=== PATIENT | male | born 1990 | race Hispanic/Latino ===

== ENCOUNTER 2016-05-13 13:43 | Inpatient (IN) | payer OTHER ==
[~2016-05-13] VITALS: Ht 180.3 cm; Wt 68.3 kg
[~2016-05-13 13:43] MED LIST: OLAN10TA5 PO
[2016-05-13 14:00] VITALS: BP 115/66; PULSE 96; RESP 24; O2SAT 97
--- NOTE | 2016-05-13 15:52 | ED.REPORT ---
HPI-Psychiatric Illness Date of Service May 13, 2016 ED Provider: Keyon Joshi MD 25 year old male with a history of schizophrenia and polysubstance abuse who presents to the ER with psychosis and paranoid delusions. Upon entering the room the patient states "For the last few weeks I've been having acid rain" then points to the ceiling. He states he is here for detox from meth, but then states he has not done meth for a week, but has been taking "dabs" of cannabis oil. States "I'm getting shot with little lasers of meth". He then says he has fatigue, fevers and sweats. Pt denies thought of suicidal or homicidal ideations. Nursing Notes Stated Complaint: SWEATING/FEVER Chief Complaint: General Complaint Nursing Notes Reviewed: Yes Allergies: Coded Allergies: No Known Allergies (Verified Allergy, Unknown, 01/11/15) Scheduled Olanzapine ODT (Zyprexa Zydis) 10 Mg Tablet 10 MG PO DAILY General Time Seen by MD: 15:20 Chief Complaint Other (psychosis) Hx Obtained From: Patient Arrived By: Walk-in Risk-Psychiatric Illness Suicide Risk Stratification RF Statements: Risk factors reviewed Past Medical History Past Medical History Schizophrenia History of polysubstance abuse (meth) Past Surgical History R hernia repair Smoking History Light Tobacco Smoker Social History History of polysubstance abuse by history Drug Use: THC Other Social History: Good social support, Local resident Ambulatory Status Independent Review of Systems Unable to Obtain ROS Mental status Constitutional: Reports: Fatigue, Fever Skin: Reports Diaphoresis Psychiatric: Reports: Delusional, Hallucinations, visual, Denies: Agitation, Homicidal ideation, Suicidal ideation Physical Exam Initial Vital Signs Vital Signs (First) Date Time Temp Pulse Resp B/P Pulse Ox O2 Delivery O2 Flow Rate FiO2 05/13/16 14:00 36.6 96 24 115/66 97 Room Air Initial VS: Reviewed Head / Eyes: Atraumatic (No signs of trauma to face or scalp.), Normocephalic, PERRL ENT: Conjunctiva normal, No scleral icterus Neck: Full range of motion Respiratory: Breath sounds normal, Clear to auscultation, No respiratory distress Cardiovascular: Regular rate & rhythm, Heart sounds normal, Intact distal pulses Extremities: Vascular intact, Neuro intact Skin: Warm, Dry, No cyanosis General/Constitutional: Awake, Alert, No acute distress, Cooperative Neurologic: Speech NL, No motor deficits Psychiatric: Not suicidal, Not homicidal Calm, no apparent distress, occasionally seems to be responding to external stimuli. Seems to be exhibiting signs of psychosis- paranoid. Not agitated or aggressive. Doesn't appear intoxicated. Interpretation & Diagnostics Lab Results Interpretation Result Diagram: 05/13/16 1705 05/13/16 1705 Test 05/13/16 14:40 05/13/16 17:05 Hold Urine Received (Received) White Blood Count 15.8th/mm3 (3.8-10.1) Red Blood Count 4.83mil/mm3 (4.40-5.80) Hemoglobin 14.1g/dL (13.8-17.2) Hematocrit 40.9% (41.0-50.0) Mean Corpuscular Volume 84.7fL (81-100) Mean Corpuscular Hemoglobin 29.2pg (27.0-35.0) Mean Corpuscular Hemoglobin Concent 34.5% (32.0-37.0) Red Cell Distribution Width 12.8% (12.3-15.4) Platelet Count 196bil/L (150-400) Neutrophils (%) (Auto) 83.9% (40-74) Lymphocytes (%) (Auto) 7.9% (14-46) Monocytes (%) (Auto) 7.8% (4-12) Eosinophils (%) (Auto) 0% (0-5) Basophils (%) (Auto) 0.2% (0-3) Sodium Level 138mEq/L (134-144) Potassium Level 3.7mEq/L (3.5-5.2) Chloride Level 101mEq/L (97-108) Carbon Dioxide Level 20mmol/L (18-29) Blood Urea Nitrogen 22mg/dL (6-20) Creatinine 1.04mg/dL (0.76-1.27) Estimat Glomerular Filtration Rate 92mL/min (>59) Glucose Level 121mg/dL (60-99) Calcium Level 8.4mg/dL (8.5-10.1) Total Bilirubin 1.0mg/dL (0.0-1.2) Aspartate Amino Transf (AST/SGOT) 59U/L (0-50) Alanine Aminotransferase (ALT/SGPT) 26U/L (0-44) Alkaline Phosphatase 78U/L (25-150) Total Protein 6.3g/dL (6.4-8.4) Albumin 4.0g/dL (3.4-5.0) Thyroid Stimulating Hormone (TSH) 0.523uIU/mL (0.450-4.500) Hold Quintero Top Tube Received (Received) Lab Results Interpretation: Utox positive for THC General Lab Results Interp 1: Labs reviewed Re-Eval/Medical Decision Med Decision/Clinical Course In summary, the patient is a 25-year-old male with past medical history significant for unspecified underlying psychiatric disorder, possibly schizophrenia, who presents with disorganized thoughts, paranoid behavior, making statements that people are trying to poison him by using lasers to inject methamphetamine into his body among other vague nonsensical statements. Nursing notes were reviewed. After initial history and physical exam, I had concerns about the patient's decisional capacity and safety in the community. I feel that the patient may require psychiatric treatment or guard list of his desire to pursue this. I contacted our social service worker who interviewed the patient as well and agreed with the plan. I considered medical etiologies of the patient's symptoms including metabolic and toxicologic and none were found in our history, physical exam or lab workup. There was no indication of significant trauma on exam. No neurologic defecits to suggest PHOTOCOPIER TECHNICIAN mass. I obtained labs including CBC, CMP and UA to eval for organic disease. These tests were negative. I also obtained a serum ETOH level and UDS were notable only for positive THC. Patient presents with exacerbation of their underlying psychosis. At this point , the patient is not stable for outpatient treatment and is at extreme risk to harm self or others due to their severe disorganization. Thus a hold was placed by [facility] and we elected to admit to psychiatry for magagement of psychosis. The patient remained comfortable and hemodynamically stable throughout their ED course. He was treated with 10 mg Zydis ODT Patient admitted for further evaluation and management. Consultation #1: Consulted With: yard worker Call Returned at: 16:44 Note: Responding to visual stimuli, convinced someone is pricking him with pins and is convinced that they are gasing him with methane gas. Will contact [facility]. Consultation #2: Consulted With: Mental health Call Returned at: 18:47 Note: DM- Updated of patient. Refusing to speak with him. Probably detainment. Counseled Regarding: Diagnosis, Lab results Discharge & Departure Impression: Primary Impression: Psychosis Psychosis type: unspecified psychosis type Qualified Code: F29 - Unspecified psychosis not due to a substance or known physiological condition Additional Impressions: Paranoia Marijuana abuse Schizophrenia Schizophrenia type: other Qualified Code: F20.89 - Other schizophrenia Disposition: Home Discharge Condition All VS Reviewed: Yes Condition: Improved Referrals: Steffi Pineda MD (PCP) Scribe Attestation Portions of this note were transcribed by Francisca Villatoro. I, (Dr. Keyon Joshi ) personally performed the history, physical exam and medical decision-making; I reviewed and confirmed the accuracy of the information in the transcribed note. Signed by: Francisca Villatoro. Frank, 05/13/2016, 1630 copies to: Steffi Pineda MD, Beck O MD May 13, 2016 15:52 Francisca Villatoro May 13, 2016 16:32
[2016-05-13 17:14] LABS: BASOPHILS % (AUTO) 0.2 % (0-3); EOSINOPHILS % (AUTO) 0 % (0-5); MONOCYTES % (AUTO) 7.8 % (4-12); Mean Corpuscular Hemoglobin 29.2 pg (27.0-35.0); Mean Corpuscular Volume 84.7 fL (81-100); NEUTROPHILS % (AUTO) 83.9 % (40-74); Platelet Count 196 bil/L (150-400)
[2016-05-13 19:08] VITALS: BP 119/72; PULSE 104; RESP 14; O2SAT 98
[2016-05-13] MEDS ORDERED: OLANZapine Zydis ODT 5 mg Tablet PO SCH (19:15)
[2016-05-13 20:28] VITALS: BP 122/74; PULSE 74; RESP 14; O2SAT 98
[2016-05-13] MEDS ORDERED: Magnesium Hydroxide 10 mL Oral Concentration PO PRN (20:45)
[2016-05-13] MEDS ORDERED: Benzocaine-Menthol Lozenge 2/Pkg PO PRN (20:45)
[2016-05-13] MEDS ORDERED: Alum-Mag Hydrox-Simeth 30 mL Suspension PO PRN (20:45)
--- NOTE | 2016-05-13 21:14 | NUR ---
Admit Note Involuntary admit arrived on the unit @ 2021. Detained on a petition for initial alf. He presented to the ED with c/o losing weight and that someone is lacing his food with poison. Positive for THC. Pt expressing paranoia and not feeling safe at home. Pt seeking help. He was medicated with Zyprexa 10mg po in the ED. Pt oriented to his room. Pt unable to tolerate excessive stimulation. He was cooperative with staff direction. Unable to sign admission paperwork will attempt again in the morning. Addendum: 05/14/16 at 0532 by INDU CRAFT RN Pt has remained asleep through the night with no noted distress or awakening per protocol checks. Total sleep over 8.5 hours.
--- NOTE | 2016-05-14 05:27 | NUR ---
- Pt arrived to unit 2021. To room, changed into scrubs and went to bed. Unable to sign paperwork due to paranoia and response to the stimulation. Went to bed soon after arrival and slept as of 2099. Pt observed every 15 minutes as ordered.
[2016-05-14] MEDS: LORazepam 1 mg Tablet PO PRN (08:07)
[2016-05-14 17:03] LABS: BASOPHILS % (AUTO) 0.3 % (0-3); EOSINOPHILS % (AUTO) 0.5 % (0-5); MONOCYTES % (AUTO) 9.1 % (4-12); Mean Corpuscular Hemoglobin 29.2 pg (27.0-35.0); Mean Corpuscular Volume 85.4 fL (81-100); NEUTROPHILS % (AUTO) 78.3 % (40-74); Platelet Count 195 bil/L (150-400)
[2016-05-14 17:55] VITALS: BP 138/78; PULSE 100; RESP 16
--- NOTE | 2016-05-14 18:35 | NUR ---
Nursing Dayshift: S: "I'm anxious about what's going to happen." O: Patient relating to his anxiety today. Depression "I'm not depressed. I'm just worried about my family." Denies harmful thoughts and hallucinations including the "meth lasers that were hitting my arms last night." Verbalizes feeling much better than yesterday. Has been out of his room for meals with a good appetite. Isolative in his room otherwise. His room has a flatus smelling odor to it. CPK level back at over 2000. Patient encouraged to drink more fluids. A: Interactive on approach. Med compliant. P: CPOC. Monitor mood and behavior.
--- NOTE | 2016-05-14 19:44 | NUR ---
Counseling/Outside Cutter Hand: S: "We are mindly reborn and your body just fluctuates." O: Patient slept 9 hours last night per staff. Patient denies S/I and H/I. He denies auditory and visual hallucinations. Depression is 0/10 and anxiety is 5/10. A: Patient is cooperative, distractible, delusional, tangential, latent speech, poor insight, poor judgment. P: Follow care plan, coordinate out-patient providers, monitor behavior.
--- NOTE | 2016-05-14 20:58 | NUR ---
Observations 0900 to 2130 Pt was isolative, flat and guarded. Pt speech and eye contact was ok. Pt was in and out of his room most of the shift. Pt attended meals in D.R. and ate 100% of his meals. Pt maintained behavior throughout the shift. Pt was polite and cooperative. Pt did not attend group and unit activities. Pt is unsocial with staff and peers, only giving short answers when approached. Pt was offered a shower but he declined. Pt was observed every 15 minutes throughout the shift as ordered.
[2016-05-14] MEDS ORDERED: risperiDONE 2 mg Tablet PO SCH (21:00)
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
--- NOTE | 2016-05-15 06:12 | NUR ---
[employer] 7pm and 7am Pt Out in the milieu at start of shift, wandering around looking lost. Pt appears confused and distracted, denies A/VH although seems internally preoccupied with thought blocking evident. Pt took HS meds, went to bed at 2200 and slept until 0315 when he got up and did not go back to sleep. Requested to shower at 0600. Pt is pleasant and cooperative. NOt a management problem. Required no prns this shift. Monitored q 15 minutes for safety, location and accountability.
[2016-05-15 08:25] VITALS: BP 126/82; PULSE 138; RESP 16
[2016-05-15] MEDS: LORazepam 1 mg Tablet PO PRN (08:35)
[2016-05-15] MEDS: risperiDONE 1 mg Tablet PO PRN (08:35)
[2016-05-15 12:55] LABS: BASOPHILS % (AUTO) 0.5 % (0-3); EOSINOPHILS % (AUTO) 0.9 % (0-5); MONOCYTES % (AUTO) 9.2 % (4-12); Mean Corpuscular Hemoglobin 29.5 pg (27.0-35.0); Mean Corpuscular Volume 86.6 fL (81-100); NEUTROPHILS % (AUTO) 74.4 % (40-74); Platelet Count 183 bil/L (150-400)
--- NOTE | 2016-05-15 13:30 | PCM.PNPSY ---
Subjective Date of Service May 15, 2016 Subjective The patient reports that the risperidone worked better than the olanzapine. He stated that it is "helping with my thinking." He received an additional 1 mg this morning and requests that we switch it to 2 mg twice daily tomorrow. He denies side effects to medication. On physical examination there is no tremor, dystonia, or cogwheeling. Sleep: 5+ hours Appetite: "Up to par" Suicidal and homicidal ideation: Denies Auditory hallucinations: Endorses seeing "a shimmer" Visual hallucinations: Denies Other Psychotic Symptoms: Still some thought disorganization Anxiety: Mild Depression: 0/10 Current Medications Current Medications Acetaminophen 650 mg Q4H PRN PO Last administered on 05/14/16 08:07; Admin Dose 650 MG; Start 05/13/16 at 20:45 Lorazepam 1 mg Q4 PRN PO Last administered on 05/15/16 08:35; Admin Dose 1 MG; Start 05/13/16 at 20:45 Olanzapine 10 mg ONCE PO Last administered on 05/13/16 19:35; Admin Dose 10 MG; Start 05/13/16 at 19:15 Risperidone 1 mg Q6 PRN PO Last administered on 05/15/16 08:35; Admin Dose 1 MG ; Start 05/14/16 at 18:50 Risperidone 2 mg HS PO Last administered on 05/14/16 20:47; Admin Dose 2 MG; Start 05/14/16 at 21:00 Mental Status Exam Vital Signs Vital Signs Date Time Temp Pulse Resp B/P Pulse Ox O2 Delivery O2 Flow Rate FiO2 05/15/16 08:25 36.4 138 16 126/82 Appearance: Neat/well groomed Attitude: Pleasant, Cooperative Behavior: No unusual behavior Affect: Well Modulated/Appropriate Mood: Anxious Thought Process/Associations: Circumstantial (mild), Other (mild thought blocking or disorganization) Speech Production: Normal Speech Rate: Normal Speech Articulation: Normal Thought Content: Suspicious Danger to Self/Suicidal Ideati: None Danger to Others: None Hallucinations: Auditory (Denies), Visual (Endorses) Consciousness: Alert Orientation: Person, Place, Date, Situation Memory: Grossly Intact Estimate Intellectual Function: Average Basis for IQ estimate: Word use/vocabulary, Educational history, Employment history Attention/Concentration & Cogn: Impaired Insight: Limited Judgement: Limited Result Diagram: 05/15/16 1200 05/14/16 1642 Mental Health Plan The patient is a 25-year-old male with a history of schizophrenia, methamphetamine use disorder and cannabis use disorder. The patient reports having stopped using methamphetamine prior to last week but has used cannabis in the last week. He is currently presenting with perceptual distortions and cognitive impairment and is agreeable to taking medications to address the same. The patient previously responded to haloperidol but did not care for the side effects and so we discussed initiating risperidone and potentially switching to Invega Sustenna for a long-acting injectable. The patient reports the medication is helpful and denies any side effects. [place] Benning[place] I. 1. Schizophrenia, chronic paranoid type. 2. Methamphetamine use disorder. 3. Marijuana use disorder. 4. Hallucinogen use disorder, resolved. [place] II. Previous diagnosis of paranoid and schizotypal personality disorder. [place] III. Elevated CPK and a mildly elevated LFTs. [place] IV. Substance use, chronic mental illness and limited social supports. [place] V. Global Assessment of Functioning 30. Treatments 1. The patient is admitted to the [facility] [place] and is provided a safe and secure environment. 2. The patient will be seen by the treatment team on a daily basis to assess symptoms, side effects and response to treatment. 3. The patient is currently denying any active suicidality and is not in need of a 1:1 at this time. 4. The patient is encouraged to participate with group and milieu activity. 5. Increase risperidone to 2 mg at bedtime and consider Invega Sustenna. 6. Lorazepam 1 mg q.4 h. p.r.n. anxiety. 7. Zolpidem 5 mg nightly p.r.n. insomnia. 8. Risperidone 1 mg q.6 h. p.r.n. psychotic agitation. 9. Follow-up CPK, CBC, CMP in the morning depending on today's lab results. 10. Encourage patient to drink by mouth fluids. Reviewed case with hospitalist who advised repeating labs until CPK inconsistent downward trend and encourage oral fluids. 11. Anticipated length of stay is 10-14 days. Noel Hoff MD May 15, 2016 13:29
--- NOTE | 2016-05-15 14:41 | NUR ---
[id number]. nurs. S: I am reading and writing poems, I am trying to clear my head that's not a negative thing... O:Pt mostly in bedrm staring out window, noted to be reading and writing as stated. Pt stating that that he is writing poetry and that he is not having significant pxs with depression or anxiety. Pt did come to staff in am "I am ready for my medication" and given ativan and started risperdal at that time. Pt out to get meals and eating lot of snacks. Pt appears somewhat confused and anxious but appears to want to be appropriate. P;CNCP
--- NOTE | 2016-05-15 14:42 | NUR ---
Best Worker./ c.m. S.:"Medicine is great. 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 and MD together. Pt. had broken sleep last night but "better than before." He denied SI/HI, denied AH. He continued having VH but they were "better today". He denied depression. He said that "anxiety is more my curiosity." He liked his meds and he said that medications were helping him. He denied side effect of medications. He spent a lot of time in his room in the morning. A.: pt. is cooperative, pleasant, isolative. P.: monitor behavior, encourage pt. to participate in the unit activities, monitor meds intake; follow care plan.
--- NOTE | 2016-05-15 17:18 | NUR ---
Observations 0700 to 1900 Pt was isolative, flat and guarded. Pt speech and eye contact was pretty good. Pt was in and out of his room most of the shift. Pt attended meals in D.R. and ate 100% of his meals. Pt maintained behavior throughout the shift. Pt was polite and cooperative. Pt did not attend group and unit activities. Pt did attend community and set a daily goal "to eat and relax". Pt rated his mood 5 out of 10, with 10 being the best. Pt is unsocial with staff and peers, and just keeps to himself. Pt took a shower and attended to ADL's. Pt was observed every 15 minutes throughout the shift as ordered.
--- NOTE | 2016-05-15 17:52 | NUR ---
4 hour nursing note Pt. has been guarded but polite with staff. He stated he feels good and wants to play some video games. He has a flat affect and direct eye contact. He did not feel comfortable with marketing writer going in his room to chat with him.
[2016-05-15] MEDS: risperiDONE 2 mg Tablet PO SCH (19:59)
--- NOTE | 2016-05-15 21:59 | NUR ---
Nursing Note - 7pm to 11pm Pt visible on unit , but seclusive to self, does not interact with peers. Pt with blank stare and flat affect. He is guarded and suspicious with some thought blocking evident. Pt denies A/VH but appears internally preoccupied. Pt presented independently for HS meds and declined none.
--- NOTE | 2016-05-16 06:04 | NUR ---
Nursing notes: roll finisher/sleep Patient appears to be sleeping on safety checks during the night. Patient awake briefly to request a snack, then returned to room and appears asleep. Patient awakens early am 05:45, denies complaints on approach
[2016-05-16] MEDS: LORazepam 1 mg Tablet PO PRN ×2 (08:05→23:32)
[2016-05-16] MEDS: risperiDONE 2 mg Tablet PO SCH ×2 (08:05→20:32)
--- NOTE | 2016-05-16 10:54 | NUR ---
[id number]. nurs. S: "Do you ever feel that reality is pushing in on you and you keep shrinking? It's my first time up to swing at this, so it's not surprising I'm not that good at it yet" pt up to meals and was able to spend time with another young male peer playing video game in Rec. rm, then spent time watching same peer select own preferences and exclude pt. Pt able to state everyone had own preferences and did not express any annoyance eventually returning to own room. Pt pleasant and trying to participate appropriately in interactions. Avoids conflict, has nervous demeanor. Polite to peers that attempt to engage him, not seeking interaction.
--- NOTE | 2016-05-16 14:39 | NUR ---
Produce Sorter./ c.m. S.:"I'm doing ok, a little slight headed." O.: met with pt. and MD together. Pt. slept "perfect" last night. He denied SI/HI, denied AH/VH, denied depression, rated anxiety at 3-4/10. He talked about "racing thoughts" regarding his "job". He denied side effect from meds. He was in and out of his room playing games with another male peer. He asked for discharge home as soon as possible. A.: pt. is cooperative, quiet, pleasant and polite. He is scattered in his thoughts and confused at times. He has a flat affect and a good eye contact. P.: monitor behavior, work on Safety plan and follow up; follow care plan.
--- NOTE | 2016-05-16 19:03 | PCM.PNPSY ---
Subjective Date of Service May 16, 2016 Subjective The patient reports that slight headed" but otherwise is experiencing no side effects. He reports that the risperidone continues to help his thinking. He discussed that he is hopeful for discharge on Tuesday but he was informed that Court was not till Tuesday. He denies side effects other than those noted above. Sleep: 7+ hours ""perfect" Appetite: "Good" Suicidal and homicidal ideation: Denies Auditory hallucinations: Denies Visual hallucinations: Denies Other Psychotic Symptoms: N/A Anxiety: 3-4/10, Anxious from playing the Wii Depression: 0/10 Current Medications Current Medications Risperidone 2 mg BID PO Last administered on 05/16/16 08:05; Admin Dose 2 MG; Start 05/15/16 at 20:30 Risperidone 2 mg HS PO Last administered on 05/14/16 20:47; Admin Dose 2 MG; Start 05/14/16 at 21:00; Stop 05/15/16 at 17:30; Status DC Mental Status Exam Appearance: Neat/well groomed Attitude: Pleasant, Cooperative Behavior: No unusual behavior Affect: Well Modulated/Appropriate Mood: Anxious Thought Process/Associations: Logical/Sequential, Goal Directed Speech Production: Normal Speech Rate: Normal Speech Articulation: Normal Thought Content: Appropriate Danger to Self/Suicidal Ideati: None Danger to Others: None Hallucinations: Auditory (Denies), Visual (Denies) Consciousness: Alert Orientation: Person, Place, Date, Situation Memory: Grossly Intact Estimate Intellectual Function: Average Basis for IQ estimate: Word use/vocabulary, Educational history, Employment history Attention/Concentration & Cogn: Impaired Insight: Limited Judgement: Limited Result Diagram: 05/15/16 1200 05/15/16 1200 Mental Health Plan The patient is a 25-year-old male with a history of schizophrenia, methamphetamine use disorder and cannabis use disorder. The patient reports having stopped using methamphetamine prior to last week but has used cannabis in the last week. He is currently presenting with perceptual distortions and cognitive impairment and is agreeable to taking medications to address the same. The patient previously responded to haloperidol but did not care for the side effects and so we discussed initiating risperidone and potentially switching to Invega Sustenna for a long-acting injectable. Today, the patient reports the medication continues to be helpful and denies any side effects. He is looking forward to outpatient follow-up and is requesting discharge if the team is agreeable next week. [place] Moira I. 1. Schizophrenia, chronic paranoid type. 2. Methamphetamine use disorder. 3. Marijuana use disorder. 4. Hallucinogen use disorder, resolved. [place] II. Previous diagnosis of paranoid and schizotypal personality disorder. [place] III. Elevated CPK and a mildly elevated LFTs. [place] IV. Substance use, chronic mental illness and limited social supports. [place] V. Global Assessment of Functioning 35. Medications Risperidone 2 mg twice daily Lorazepam 1 mg every 4 hours as needed for anxiety Risperidone 1 mg every 6 hours as needed for psychotic agitation Treatments 1. The patient is admitted to the [facility] and is provided a safe and secure environment. 2. The patient will be seen by the treatment team on a daily basis to assess symptoms, side effects and response to treatment. 3. The patient is currently denying any active suicidality and is not in need of a 1:1 at this time. 4. The patient is encouraged to participate with group and milieu activity. 5. Risperidone 2 mg twice daily and consider Invega Sustenna. 6. Lorazepam 1 mg q.4 h. p.r.n. anxiety. 7. Zolpidem 5 mg nightly p.r.n. insomnia. 8. Risperidone 1 mg q.6 h. p.r.n. psychotic agitation. 9. Follow-up CPK, CBC, CMP in the morning. CPK is trending down 10. Encourage patient to drink by mouth fluids. Reviewed case with hospitalist who advised repeating labs until CPK inconsistent downward trend and encourage oral fluids. 11. Anticipated length of stay is 5-7 days. Noel Hoff MD May 16, 2016 19:03
[2016-05-16] MEDS: Zolpidem 5 mg Tablet for FEMALE or >65YO PO PRN (22:43)
--- NOTE | 2016-05-16 22:54 | NUR ---
Nursing Evening Pt out in milieu participating in evening activities. Pleasant, social and cooperative on the unit. Took scheduled medication along with Ambien 5mg po prn @ 6370 for sleep. He stated "I need to quiet my mind. I need something to help me sleep". Will monitor medication efficacy and sleep cycle through the night. Addendum: 05/17/16 at 0543 by INDU CRAFT RN Pt only able to get partial sleep. He slept from 4044-2297 for a total of 4.75 hours.
[2016-05-17] MEDS: risperiDONE 2 mg Tablet PO SCH ×2 (08:10→20:47)
[2016-05-17 09:16] LABS: BASOPHILS % (AUTO) 0.3 % (0-3); MONOCYTES % (AUTO) 6.6 % (4-12); Mean Corpuscular Hemoglobin 29.4 pg (27.0-35.0); Mean Corpuscular Volume 85.1 fL (81-100); NEUTROPHILS % (AUTO) 80.1 % (40-74); Platelet Count 223 bil/L (150-400)
[2016-05-17 09:34] VITALS: BP 129/82; PULSE 107; RESP 16
--- NOTE | 2016-05-17 13:34 | NUR ---
Obs Dayshift Pt is in his room often during free times, does participate in groups, and engages but remains minimal in responses and slightly guarded. Pt has been going into the GR to play games or Wii. Pt is forward thinking and positive. GOod ADL's and good meals
--- NOTE | 2016-05-17 13:54 | PCM.PNPSY ---
Subjective Date of Service May 17, 2016 Subjective I spent 30 minutes both reviewing his treatment plan and providing supportive and educational psychotherapy. I spent more than 50% of the time counseling the patient. I reviewed the treatment plan with the patient and discussed options available including the potential risks, benefits and side effects. Roel reports remission of auditory. He states he still struggles trying to determine the difference between his imagination and the day world. The Staff reports that he has been active and is participating well in one-to-one unit and group activities. He slept 5 hours. He denies medication side effects. Patient was able to identify his medications and what they were used to treat. He appeared to understand the need for medications by the questions he asked during our discussion. Current Medications Current Medications Risperidone 2 mg BID PO Last administered on 05/17/16t 08:10; Admin Dose 2 MG; Start 05/15/16 at 20:30 Mental Status Exam Vital Signs Vital Signs Date Time Temp Pulse Resp B/P Pulse Ox O2 Delivery O2 Flow Rate FiO2 05/17/16 09:34 36.4 107 16 129/82 Appearance: Neat/well groomed Attitude: Pleasant, Cooperative Behavior: No unusual behavior Affect: Well Modulated/Appropriate Mood: Anxious Thought Process/Associations: Logical/Sequential, Goal Directed Speech Production: Normal Speech Rate: Normal Speech Articulation: Normal Thought Content: Appropriate Danger to Self/Suicidal Ideati: None Danger to Others: None Hallucinations: Auditory (Denies), Visual (Denies) Consciousness: Alert Orientation: Person, Place, Date, Situation Memory: Grossly Intact Estimate Intellectual Function: Average Basis for IQ estimate: Word use/vocabulary, Educational history, Employment history Attention/Concentration & Cogn: Impaired Insight: Limited Judgement: Limited Result Diagram: 05/17/16 0845 05/17/16 0845 Mental Health Plan The patient is a 25-year-old male with a history of schizophrenia, methamphetamine use disorder and cannabis use disorder. The patient reports having stopped using methamphetamine prior to last week but has used cannabis in the last week. He is currently presenting with perceptual distortions and cognitive impairment and is agreeable to taking medications to address the same. The patient previously responded to haloperidol but did not care for the side effects and so we discussed initiating risperidone and potentially switching to Invega Sustenna for a long-acting injectable [place] I. 1. Schizophrenia, chronic paranoid type. 2. Methamphetamine use disorder. 3. Marijuana use disorder. 4. Hallucinogen use disorder, resolved. [place] II. Previous diagnosis of paranoid and schizotypal personality disorder. [place] III. Elevated CPK and a mildly elevated LFTs. [place] IV. Substance use, chronic mental illness and limited social supports. [place] V. Global Assessment of Functioning 35. Medications Risperidone 2 mg twice daily Lorazepam 1 mg every 4 hours as needed for anxiety Risperidone 1 mg every 6 hours as needed for psychotic agitation Treatments 1. The patient is admitted to the [facility] and is provided a safe and secure environment. 2. The patient will be seen by the treatment team on a daily basis to assess symptoms, side effects and response to treatment. 3. The patient is currently denying any active suicidality and is not in need of a 1:1 at this time. 4. The patient is encouraged to participate with group and milieu activity. 5. Risperidone 2 mg twice daily and consider Invega Sustenna. 6. Lorazepam 1 mg q.4 h. p.r.n. anxiety. 7. Zolpidem 5 mg nightly p.r.n. insomnia. 8. Risperidone 1 mg q.6 h. p.r.n. psychotic agitation. 9. Follow-up CPK, CBC, CMP in the morning. CPK is trending down 10. Encourage patient to drink by mouth fluids. Reviewed case with hospitalist who advised repeating labs until CPK inconsistent downward trend and encourage oral fluids. 11. Anticipated length of stay is 5-7 days. Jt Anthony MD May 17, 2016 13:54
--- NOTE | 2016-05-17 14:40 | NUR ---
Nursing Days patient has been calm/cooperative. Answering questions appropriately. denies hearing voices. denies SI/HI. denies feeling anxious. patient reported that "Ambien kept me up last night, but the Ativan helped me get some sleep". Denies side effects with medications. When asked about how he's feeling he stated, "I felt out of myself. feeling better now". patient stated, "I want to get back to work". patient reports that he works at [employer], a [employer]. stating the busy season is coming up. patient played Wii, shaved and took a shower today. continue to encourage interaction with other residents and staff, encourage making a plan for discharge.
--- NOTE | 2016-05-17 16:46 | NUR ---
Cell Attendant Helper./ c.m. S.:"I was having trouble closing my mind. It's like too many dreams or being but not really if you understand what I mean... I think some medications are working in opposite directions..." O.: met with pt. in a private room. He didn't sleep well last night because of "too many vivid dreams and active mind". He said that he would like to change a room because he "couldn't relax" his body in his room. "It doesn't align well so something is not right in my room. I talked to other people here and they are all relaxed in their rooms but I don't feel comfortable there." He denied SI/HI, denied AH/VH or paranoid/delusional thoughts. He talked about "body heat that comes in waves". He denied depression. He said that he was "very anxious" and he rated anxiety at 3/10 at that time. He said that he might need to get "higher medications that will work in one direction." He played Smart Sparrow with a female peer after lunch and he enjoyed it a lot. "I never played this sport before but I became very good at this now." He was in and out of his room playing and talking with selective peers and staff. A.: pt. is cooperative, quiet, pleasant, confused at times, has difficulty expressing his thoughts in a clear manner. P.: monitor behavior, monitor meds intake, follow care plan.
[2016-05-17] MEDS: LORazepam 1 mg Tablet PO PRN (20:48)
[2016-05-17] MEDS: risperiDONE 1 mg Tablet PO PRN (22:40)
--- NOTE | 2016-05-18 01:43 | NUR ---
Observations 1900 to 0700 pt affect was flat. Pt hung out in the DR for most of the night but was isolative. pt was polite with staff. Pt had a few snacks before going to bed for the night. Pt first appeared asleep at 23:15 and was observed every 15 minutes through the night as directed.
[2016-05-18] MEDS: LORazepam 1 mg Tablet PO PRN ×2 (04:41→23:52)
--- NOTE | 2016-05-18 04:55 | NUR ---
Nursing Noc Pt continues to be pleasant, cooperative and responsive upon approach. He spent the evening participating in group activities. He took his scheduled medication along with prn Ativan 1mg po to help promote sleep. He did not want Ambien because he felt it made his dreams worse. He stated "I don't want to have dreams. It seems as soon as I lay down and look at the ceiling the dreams start". Pt also offered and accepted Risperdal 1mg po prn to help with paranoia and feeling anxious being in his room. Pt stated "Will this help with my dreams? Are room changes allowed?" Pt informed new patients are arriving so there were less available rooms to change to. He was agreeable to staying in his current room. Pt put his mattress on the floor and slept from 8178-6193 for a total of 5.5 hours. Upon awakening he was standing at his window and appeared to be hypervigilant. He expressed feeling anxious. He was offered and accepted Ativan 1mg po prn @ 0445. Will assess medication through the morning.
[2016-05-18] MEDS: risperiDONE 2 mg Tablet PO SCH ×2 (09:53→20:16)
[2016-05-18 11:01] VITALS: BP 115/73; PULSE 110; RESP 17
--- NOTE | 2016-05-18 14:03 | PCM.PNPSY ---
Subjective Date of Service May 18, 2016 Subjective I spent 30 minutes both reviewing his treatment plan and providing supportive and educational psychotherapy. I spent more than 50% of the time counseling the patient. Roel reports remission of auditory hallucinations. He states he still struggles trying to determine the difference between his imagination and the day world. The Staff reports that he has been active and is participating well in one-to-one unit and group activities. He slept 5 hours. He is beginning to future plan how to take care of himself after discharge. We began to talk about some of the specifics. He denies medication side effects. Patient was able to identify his medications and what they were used to treat. He appeared to understand the need for medications by the questions he asked during our discussion. Mental Status Exam Vital Signs Vital Signs Date Time Temp Pulse Resp B/P Pulse Ox O2 Delivery O2 Flow Rate FiO2 05/18/16 11:01 36.4 110 17 115/73 Appearance: Neat/well groomed Attitude: Pleasant, Cooperative Behavior: No unusual behavior Affect: Well Modulated/Appropriate Mood: Euthymic Thought Process/Associations: Logical/Sequential, Goal Directed Speech Production: Normal Speech Rate: Normal Speech Articulation: Normal Thought Content: Appropriate Danger to Self/Suicidal Ideati: None Danger to Others: None Hallucinations: Auditory (Denies), Visual (Denies) Consciousness: Alert Orientation: Person, Place, Date, Situation Memory: Grossly Intact Estimate Intellectual Function: Average Basis for IQ estimate: Word use/vocabulary, Educational history, Employment history Attention/Concentration & Cogn: Impaired Insight: Good Judgement: Limited Result Diagram: 05/17/16 0845 05/17/16 0845 Mental Health Plan The patient is a 25-year-old male with a history of schizophrenia, methamphetamine use disorder and cannabis use disorder. The patient reports having stopped using methamphetamine prior to last week but has used cannabis in the last week. He initially presented with perceptual distortions and cognitive impairment and was agreeable to taking medications to address these issues. Roel's been tolerating current medication regimen. He appears to be slowly but steadily improving In thought organization and mood stability. [place] Meacham I. 1. Schizophrenia, chronic paranoid type. 2. Methamphetamine use disorder. 3. Marijuana use disorder. 4. Hallucinogen use disorder, resolved. [place] II. Previous diagnosis of paranoid and schizotypal personality disorder. [place] III. Elevated CPK and a mildly elevated LFTs. [place] IV. Substance use, chronic mental illness and limited social supports. [place] V. Global Assessment of Functioning 40. Medications Risperidone 2 mg twice daily Lorazepam 1 mg every 4 hours as needed for anxiety Risperidone 1 mg every 6 hours as needed for psychotic agitation Treatments Patient is being provided with a high degree of safety through the structure and active adult engagement. We will focus on developing improved coping skills and identifying stressors that may have led to current episode. We will attempt to: Integrate into therapeutic groups, milieu and individual therapy. Maintain in a closely monitored and structured unit Provide low-stimulation environment Obtain collateral data to assist in treatment planning Assess degree of lability of affect and impulse control Complete safety plan Decrease frequency of relapse and need for re-hospitalization Establish a consistent sleep pattern Medication effective in stabilization of mood and/or thought process Tolerates medication without side effects Patient will be on the following psychiatric medications: Risperidone 2 mg twice daily Education: Educate patient about recreational drug use as an etiology Address patient's legal status Patient is on a 90 day least restrictive alternative with 7 additional days involuntary treatment hold. Disposition: Home Jt Anthony MD May 18, 2016 14:02
--- NOTE | 2016-05-18 14:16 | NUR ---
Nursing Note [id number] Behavior S/O: Pt has a good appetite. Pulse is 110 & has been running high. Other vital signs are WNL.Conversation tracking clear & organized with normal rate & rhythm. Pt has made reasonable requests. Pt has been in groups & interacts well with peers. He took a nap after lunch & stated, "I'm really anxious. I had a bad dream." He requested a snack-given. A: Pt slowly improving. P: Provide supportive environment. Monitor medications & effects.
--- NOTE | 2016-05-18 16:27 | NUR ---
Obs Dayshift Pt was out a little more today than past few days. Pt is polite, engages when approached, calm, joins in games in the group room. Pt is quiet, slightly isolating still, and looking forward to going home to get back to work soon. Pt is happy about working becoming more busy. Pt is oriented, participating, and appropriate on the unit and in grps. Good ADL's, Good meals
--- NOTE | 2016-05-18 22:08 | NUR ---
nursing evening shift S)"can I have the medication for headache?" O)pt cooperative, ate meals, dressed in scrubs, took medications denies anxiety, depression, polite on approach A) cooperative, flat affect, took medications P) monitor medication effectiveness and encourage participation in treatment
[2016-05-18] MEDS: risperiDONE 1 mg Tablet PO PRN (23:51)
--- NOTE | 2016-05-18 23:53 | NUR ---
Sleep Pt awoke at 1027 stating "Can I have something for a dreamless sleep?" Pt reports dreams are still bothersome but "neutral" compared to when he first arrived. Pt received Ativan 1mg po prn and Risperdal 1mg po prn. Will monitor medication efficacy and sleep cycle through the night. Addendum: 05/19/16 at 0249 by INDU CRAFT RN Pt awoke @ 2557. He requested and received Ambien 5mg po prn for sleep. Will continue to monitor medication efficacy and sleep cycle.
--- NOTE | 2016-05-19 02:13 | NUR ---
Observations 1900 to 0700 pt affect was flat. Pt hung out in the DR for most of the night but was isolative. pt was polite with staff. Pt had a few snacks before going to bed for the night. Pt had a hard time falling asleep Pt first appeared asleep at 01:15 and was observed every 15 minutes through the night as directed.
[2016-05-19] MEDS: Zolpidem 5 mg Tablet for FEMALE or >65YO PO PRN (02:48)
[2016-05-19] MEDS: risperiDONE 2 mg Tablet PO SCH ×2 (09:55→21:13)
--- NOTE | 2016-05-19 11:47 | PCM.PNPSY ---
Subjective Date of Service May 19, 2016 Subjective I spent 30 minutes both reviewing his treatment plan and providing supportive and educational psychotherapy. I spent more than 50% of the time counseling the patient. Roel repeats remission of auditory hallucinations. He is beginning to feel a clear difference between his imagination and the day world. The Staff reports that he has been active and is participating well in one-to-one unit and group activities. He slept 6 hours. He is beginning to future plan how to take care of himself after discharge. We began to talk about some of the specifics. He denies medication side effects. Patient was able to identify his medications and what they were used to treat. He appeared to understand the need for medications by the questions he asked during our discussion. Mental Status Exam Appearance: Neat/well groomed Attitude: Pleasant, Cooperative Behavior: No unusual behavior Affect: Well Modulated/Appropriate Mood: Euthymic Thought Process/Associations: Logical/Sequential, Goal Directed Speech Production: Normal Speech Rate: Normal Speech Articulation: Normal Thought Content: Appropriate Danger to Self/Suicidal Ideati: None Danger to Others: None Consciousness: Alert Orientation: Person, Place, Date, Situation Memory: Grossly Intact Estimate Intellectual Function: Average Basis for IQ estimate: Word use/vocabulary, Educational history, Employment history Attention/Concentration & Cogn: Grossly Intact Insight: Good Judgement: Good Result Diagram: 05/17/16 0845 05/17/16 0845 Mental Health Plan The patient is a 25-year-old male with a history of schizophrenia, methamphetamine use disorder and cannabis use disorder. The patient reports having stopped using methamphetamine prior to last week but has used cannabis in the last week. He initially presented with perceptual distortions and cognitive impairment and was agreeable to taking medications to address these issues. Roel is a very articulate and caring young man. He has a history of a psychotic episode which Was well treated with neuroleptics. For unclear reasons he was off medications for an unclear amount of time And had a recurrence of psychotic symptoms. The acute stressor remains unclear. Roel's been tolerating current medication regimen. He appears to be slowly but steadily improving In thought organization and mood stability. [place] I. 1. Schizophrenia, chronic paranoid type. 2. Methamphetamine use disorder. 3. Marijuana use disorder. 4. Hallucinogen use disorder, resolved. [place] II. Previous diagnosis of paranoid and schizotypal personality disorder. [place] III. Elevated CPK and a mildly elevated LFTs. [place] IV. Substance use, chronic mental illness and limited social supports. [place] V. Global Assessment of Functioning 40. Medications Risperidone 2 mg twice daily Lorazepam 1 mg every 4 hours as needed for anxiety Risperidone 1 mg every 6 hours as needed for psychotic agitation Treatments Patient is being provided with a high degree of safety through the structure and active adult engagement. We will focus on developing improved coping skills and identifying stressors that may have led to current episode. We will attempt to: Integrate into therapeutic groups, milieu and individual therapy. Maintain in a closely monitored and structured unit Provide low-stimulation environment Obtain collateral data to assist in treatment planning Assess degree of lability of affect and impulse control Complete safety plan Decrease frequency of relapse and need for re-hospitalization Establish a consistent sleep pattern Medication effective in stabilization of mood and/or thought process Tolerates medication without side effects Patient will be on the following psychiatric medications: Risperidone 2 mg twice daily Education: Educate patient about recreational drug use as an etiology Address patient's legal status Patient is on a 90 day least restrictive alternative with 7 additional days involuntary treatment hold. Disposition: Home Jt Anthony MD May 19, 2016 11:47
[2016-05-19] MEDS: LORazepam 1 mg Tablet PO PRN ×2 (12:24→21:13)
--- NOTE | 2016-05-19 12:47 | PCM.PNPSY ---
Subjective Date of Service May 19, 2016 Subjective I spent 30 minutes both reviewing his treatment plan and providing supportive and educational psychotherapy. I spent more than 50% of the time counseling the patient. Roel repeats remission of auditory hallucinations. He is beginning to feel a clear difference between his imagination and the day world. The Staff reports that he has been active and is participating well in one-to-one unit and group activities. He slept 6 hours. He is beginning to future plan how to take care of himself after discharge. We continued our talk about some of the specifics and future planning how to get his needs met. He denies medication side effects. Patient was able to identify his medications and what they were used to treat. He appeared to understand the need for medications by the questions he asked during our discussion. Mental Status Exam Appearance: Neat/well groomed Attitude: Pleasant, Cooperative Behavior: No unusual behavior Affect: Well Modulated/Appropriate Mood: Euthymic Thought Process/Associations: Logical/Sequential, Goal Directed Speech Production: Normal Speech Rate: Normal Speech Articulation: Normal Thought Content: Appropriate Danger to Self/Suicidal Ideati: None Danger to Others: None Consciousness: Alert Orientation: Person, Place, Date, Situation Memory: Grossly Intact Estimate Intellectual Function: Average Basis for IQ estimate: Word use/vocabulary, Educational history, Employment history Attention/Concentration & Cogn: Grossly Intact Insight: Good Judgement: Good Result Diagram: 05/17/16 0845 05/17/16 0845 Mental Health Plan The patient is a 25-year-old male with a history of schizophrenia, methamphetamine use disorder and cannabis use disorder. The patient reports having stopped using methamphetamine prior to last week but has used cannabis in the last week. He initially presented with perceptual distortions and cognitive impairment and was agreeable to taking medications to address these issues. Roel is a very articulate and caring young man. He has a history of a psychotic episode which Was well treated with neuroleptics. For unclear reasons he was off medications for an unclear amount of time And had a recurrence of psychotic symptoms. The acute stressor remains unclear. Roel's been tolerating current medication regimen. He appears to be steadily improving In thought organization and mood stability and likely will be ready for discharge in the next 72 hours. [place] I. 1. Schizophrenia, chronic paranoid type. 2. Methamphetamine use disorder. 3. Marijuana use disorder. 4. Hallucinogen use disorder, resolved. [place] II. Previous diagnosis of paranoid and schizotypal personality disorder. [place] III. Elevated CPK and a mildly elevated LFTs. [place] IV. Substance use, chronic mental illness and limited social supports. [place] V. Global Assessment of Functioning 40. Medications Risperidone 2 mg twice daily Lorazepam 1 mg every 4 hours as needed for anxiety Risperidone 1 mg every 6 hours as needed for psychotic agitation Treatments Patient is being provided with a high degree of safety through the structure and active adult engagement. We will focus on developing improved coping skills and identifying stressors that may have led to current episode. We will attempt to: Integrate into therapeutic groups, milieu and individual therapy. Maintain in a closely monitored and structured unit Provide low-stimulation environment Obtain collateral data to assist in treatment planning Assess degree of lability of affect and impulse control Complete safety plan Decrease frequency of relapse and need for re-hospitalization Establish a consistent sleep pattern Medication effective in stabilization of mood and/or thought process Tolerates medication without side effects Patient will be on the following psychiatric medications: Risperidone 2 mg twice daily Education: Educate patient about recreational drug use as an etiology Address patient's legal status Patient is on a 90 day least restrictive alternative with 7 additional days involuntary treatment hold. Disposition: Home Jt Anthony MD May 19, 2016 12:47
[2016-05-19] MEDS: risperiDONE 1 mg Tablet PO PRN (17:12)
[2016-05-19 17:40] VITALS: BP 136/81; PULSE 106; RESP 16
--- NOTE | 2016-05-19 17:52 | NUR ---
Counseling/Breakfast Server: S/O: Patient slept 2 hours last night per staff. He denies S/I and H/I. He denies auditory an visual hallucinations. Depression is 0/10 and anxiety is 0/10. When asked his mood, patient stated, "Fine." A: Patient is cooperative, pleasant, eythymic. P: Follow care plan, coordinate out-patient providers.
--- NOTE | 2016-05-19 17:58 | NUR ---
[id number]. nurs. S: " I slept soundly...The Dr said I am leaving Tuesday middle of the day family can get me." O: Pt denying any pxs with hallucination ,any PI and anxiety/depression 02/16. Pt reports that he has not had any nightmares or pxs with dreams. 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 Pt states that he understands that the Dr said that he will be ready for discharge on Tuesday and that family can take him home. Pt did ask for the "the pill that helps me get through the day" at 1224 given 1mg ativan, and rested after lunch. Pt asked for medication for racing thoughts at 1712 and given 1 mg of risperdal at that time. A: Pt although reporting that he is fine ,without pxs and ready for discharge is asking for prn medication and does appear somewhat nervous, with some flatness and guarded presentation. P:CNCP
--- NOTE | 2016-05-19 21:29 | NUR ---
PRN medication Pt offered and accepted Ativan 1mg po prn for felt anxiety with his HS medications. Pt distressed prior to going to sleep. He reports being fearful of having dreams.
--- NOTE | 2016-05-20 03:45 | NUR ---
nursing, nights, 11-7 s/o- has appeared to sleep after 2244. up briefly for a drink at 0330 and easily returned to sleep. assessed q 15 minutes. a- no apparent distress. p- monitor behavior/emotional state, quality, times and amount of sleep, use and effect of medication. glenn
[2016-05-20] MEDS: risperiDONE 2 mg Tablet PO SCH ×2 (08:39→20:45)
[2016-05-20 09:38] VITALS: BP 135/85; PULSE 111; RESP 16
--- NOTE | 2016-05-20 13:51 | PCM.PNPSY ---
Subjective Date of Service May 20, 2016 Subjective I spent 30 minutes both reviewing his treatment plan and providing supportive and educational psychotherapy. I spent more than 50% of the time counseling the patient. Roel repeats remission of auditory hallucinations. He talked to me about different aspects of his life that he is looking forward to addressing so he has decreased stress. The Staff reports that he has been active and is participating well in one-to-one unit and group activities. He slept 7 hours. We continued our talk about some of the specifics and future planning how to get his needs met. He denies medication side effects. Patient was able to identify his medications and what they were used to treat. He appeared to understand the need for medications by the questions he asked during our discussion. Mental Status Exam Appearance: Neat/well groomed Attitude: Pleasant, Cooperative Behavior: No unusual behavior Affect: Well Modulated/Appropriate Mood: Euthymic Thought Process/Associations: Logical/Sequential, Goal Directed Speech Production: Normal Speech Rate: Normal Speech Articulation: Normal Thought Content: Appropriate Danger to Self/Suicidal Ideati: None Danger to Others: None Consciousness: Alert Orientation: Person, Place, Date, Situation Memory: Grossly Intact Estimate Intellectual Function: Average Basis for IQ estimate: Word use/vocabulary, Educational history, Employment history Attention/Concentration & Cogn: Grossly Intact Insight: Good Judgement: Good Result Diagram: 05/17/16 0845 05/17/16 0845 Mental Health Plan The patient is a 25-year-old male with a history of schizophrenia, methamphetamine use disorder and cannabis use disorder. The patient reports having stopped using methamphetamine prior to last week but has used cannabis in the last week. He initially presented with perceptual distortions and cognitive impairment and was agreeable to taking medications to address these issues. Roel is a very articulate and caring young man. He has a history of a psychotic episode which Was well treated with neuroleptics. For unclear reasons he was off medications for an unclear amount of time And had a recurrence of psychotic symptoms. The acute stressor remains unclear. Roel's been tolerating current medication regimen. He appears to be steadily improving In thought organization and mood stability and likely will be ready for discharge in the next 72 hours. [place] I. 1. Schizophrenia, chronic paranoid type. 2. Methamphetamine use disorder. 3. Marijuana use disorder. 4. Hallucinogen use disorder, resolved. [place] II. Previous diagnosis of paranoid and schizotypal personality disorder. [place] III. Elevated CPK and a mildly elevated LFTs. [place] IV. Substance use, chronic mental illness and limited social supports. [place] V. Global Assessment of Functioning 40. Medications Risperidone 2 mg twice daily Lorazepam 1 mg every 4 hours as needed for anxiety Risperidone 1 mg every 6 hours as needed for psychotic agitation Treatments Patient is being provided with a high degree of safety through the structure and active adult engagement. We will focus on developing improved coping skills and identifying stressors that may have led to current episode. We will attempt to: Integrate into therapeutic groups, milieu and individual therapy. Maintain in a closely monitored and structured unit Provide low-stimulation environment Obtain collateral data to assist in treatment planning Assess degree of lability of affect and impulse control Complete safety plan Decrease frequency of relapse and need for re-hospitalization Establish a consistent sleep pattern Medication effective in stabilization of mood and/or thought process Tolerates medication without side effects Patient will be on the following psychiatric medications: Risperidone 2 mg twice daily Education: Educate patient about recreational drug use as an etiology Address patient's legal status Patient is on a 90 day least restrictive alternative with 7 additional days involuntary treatment hold. Disposition: [place] Jt Anthony MD May 20, 2016 13:51
--- NOTE | 2016-05-20 17:26 | NUR ---
Counseling/Office Machine Installer: S/O: Patient slept 6.5 hours last night per staff. He denies S/I and H/I. He denies auditory an visual hallucinations. Depression is 0/10 and anxiety is 0/10. When asked his mood, patient stated, "I'm doing good." A: Patient is cooperative, pleasant, hopeful, eythymic. P: Follow care plan, coordinate out-patient providers.
--- NOTE | 2016-05-20 18:17 | NUR ---
[id number]. nurs. S/O: "It was a good day I was relaxing ..just trying to think clearly..better every day..no pxs. " O: Pt out on unit participating in some grps and patio breaks, not very communicative with peer. Pt reports that he feels that he is making good progress towards discharge and denies any pxs or concerns. Pt states he is looking forward to getting back to work and that he had phonecalls with family today and they were positive. Pt pleasant quiet mannered some nervousness in presentation trys to be appropriate, responds but briefly. P:CNCP
--- NOTE | 2016-05-20 19:50 | NUR ---
Observations 0900 to 0 Pt was guarded, minimally social, isolative at times and flat. Pt speech and eye contact was good. Pt was in and out of his room most of the shift. Pt attended meals in D.R. and ate 100% of his meals. Pt maintained behavior throughout the shift. Pt was polite and cooperative. Pt attend group and unit activities. Pt did attend community and set a daily goal "to relax". Pt is unsocial with staff and peers, and just keeps to himself. Pt was observed every 15 minutes throughout the shift as ordered.
[2016-05-20] MEDS: LORazepam 1 mg Tablet PO PRN (23:35)
--- NOTE | 2016-05-21 03:51 | NUR ---
Nursing Noc Pt noted to have good visit with parents. Noted to again attempt to leave with family at end of visit, but remained in control of behavior when stopped. Pt continues to appear distracted, but able to follow direction and maintain ADLs. Continuing to monitor mood, behavior, emotional state and sleep times with Q15 minute safety checks
[2016-05-21] MEDS: risperiDONE 2 mg Tablet PO SCH ×2 (07:51→21:00)
--- NOTE | 2016-05-21 12:43 | PCM.PNPSY ---
Subjective Date of Service May 21, 2016 Subjective I spent 30 minutes both reviewing his treatment plan and providing supportive and educational psychotherapy. I spent more than 50% of the time counseling the patient. Roel repeats remission of auditory hallucinations. He talked to me about different aspects of his life that he is looking forward to addressing so he has decreased stress. The Staff reports that he has been active and is participating well in one-to-one unit and group activities. He slept 4hours at night but also significantly throughout the day. We continued our talk about some of the specifics and future planning how to get his needs met. He denies medication side effects. Patient was able to identify his medications and what they were used to treat. He appeared to understand the need for medications by the questions he asked during our discussion. Mental Status Exam Appearance: Neat/well groomed Attitude: Pleasant, Cooperative Behavior: No unusual behavior Affect: Well Modulated/Appropriate Mood: Euthymic Thought Process/Associations: Logical/Sequential, Goal Directed Speech Production: Normal Speech Rate: Normal Speech Articulation: Normal Thought Content: Appropriate Danger to Self/Suicidal Ideati: None Danger to Others: None Consciousness: Alert Orientation: Person, Place, Date, Situation Memory: Grossly Intact Estimate Intellectual Function: Average Basis for IQ estimate: Word use/vocabulary, Educational history, Employment history Attention/Concentration & Cogn: Grossly Intact Insight: Good Judgement: Good Result Diagram: 05/17/16 0845 05/17/16 0845 Mental Health Plan The patient is a 25-year-old male with a history of schizophrenia, methamphetamine use disorder and cannabis use disorder. The patient reports having stopped using methamphetamine prior to last week but has used cannabis in the last week. He initially presented with perceptual distortions and cognitive impairment and was agreeable to taking medications to address these issues. Roel is a very articulate and caring young man. He has a history of a psychotic episode which Was well treated with neuroleptics. For unclear reasons he was off medications for an unclear amount of time And had a recurrence of psychotic symptoms. The acute stressor remains unclear. Roel's been tolerating current medication regimen. He appears to be steadily improving In thought organization and mood stability and likely will be ready for discharge in the next 72 hours. I believe Roel would benefit from treatment over the weekend and if continues to improve Would recommend a Tuesday discharge. [place] I. 1. Schizophrenia, chronic paranoid type. 2. Methamphetamine use disorder. 3. Marijuana use disorder. 4. Hallucinogen use disorder, resolved. [place] II. Previous diagnosis of paranoid and schizotypal personality disorder. [place] III. Elevated CPK and a mildly elevated LFTs. [place] IV. Substance use, chronic mental illness and limited social supports. [place] V. Global Assessment of Functioning 40. Medications Risperidone 2 mg twice daily Lorazepam 1 mg every 4 hours as needed for anxiety Risperidone 1 mg every 6 hours as needed for psychotic agitation Treatments Patient is being provided with a high degree of safety through the structure and active adult engagement. We will focus on developing improved coping skills and identifying stressors that may have led to current episode. We will attempt to: Integrate into therapeutic groups, milieu and individual therapy. Maintain in a closely monitored and structured unit Provide low-stimulation environment Obtain collateral data to assist in treatment planning Assess degree of lability of affect and impulse control Complete safety plan Decrease frequency of relapse and need for re-hospitalization Establish a consistent sleep pattern Medication effective in stabilization of mood and/or thought process Tolerates medication without side effects Patient will be on the following psychiatric medications: Risperidone 2 mg twice daily Education: Educate patient about recreational drug use as an etiology Address patient's legal status Patient is on a 90 day least restrictive alternative with 7 additional days involuntary treatment hold. Disposition: Home Jt Anthony MD May 21, 2016 12:43
--- NOTE | 2016-05-21 14:59 | NUR ---
Counseling/Alum Operator: S/O: Patient slept 4+ hours last night per staff. He denies S/I and H/I. He denies auditory an visual hallucinations. Depression is 0/10 and anxiety is 0/10. When asked his mood, patient stated, "I feel fine." A: Patient is cooperative, pleasant, hopeful, soft spoken, eythymic. P: Follow care plan, coordinate out-patient providers.
--- NOTE | 2016-05-21 17:45 | NUR ---
Nursing Dayshift: S: "I've been reading. It's a good magazine." O: Patient reading the [employer] after supper this evening. Has kept occupied today reading much of the time. Cordial on approach. Eating well at meals. Not much interaction with peers. Denies anxiety, depression, harmful thoughts, and hallucinations. A: Calm. Cooperative. P: CPOC. Monitor mood and behavior.
--- NOTE | 2016-05-21 17:47 | NUR ---
Observations 0900 to 2130 Pt was guarded, isolative at times and flat. Pt speech and eye contact was good. Pt was in and out of his room most of the shift. Pt attended meals in D.R. and ate 100% of his meals. Pt maintained behavior throughout the shift. Pt was polite and cooperative. Pt is minimally social with staff and peers, and just keeps to himself. Pt was observed reading, writing and drawing while in his room. Pt was observed every 15 minutes throughout the shift as ordered.
[2016-05-21 17:52] VITALS: BP 130/80; PULSE 76; RESP 16
[2016-05-21] MEDS: LORazepam 1 mg Tablet PO PRN (21:00)
[2016-05-22] MEDS: LORazepam 1 mg Tablet PO PRN ×2 (02:14→20:58)
[2016-05-22] MEDS: Zolpidem 5 mg Tablet for FEMALE or >65YO PO PRN ×2 (02:14→20:58)
--- NOTE | 2016-05-22 03:00 | NUR ---
nursing, nights, 11-7 s- i went to sleep and i just woke up out of the blue. i should weigh more. i don't eat right. can i have something to sleep. o- has appeared to sleep after 2245 till midnight. came to the dinning room and returned to bed. appeared asleep after 0130 to 0200. returned to the dinning room and socialized with peers. asked for and received 1 mg of ativan, 5 mg of ambien and 650 mg of tylenol 0216. returned to his room and has appeared to sleep after 0230. assessed q 15 minutes. a- interrupted sleep, generally appropriate, no apparent physical distress. p- monitor behavior/emotional state, quality, times and amount of sleep, use and effect of medication. glenn
--- NOTE | 2016-05-22 04:33 | NUR ---
Nursing Note National Business Director 7pm to 7am Pt visible on the unit, socializing at start of shift, affect and mood euthymic, thoughts organized, linear and goal oriented. Pt reports looking forward to discharge. " I am feeling alot better. I think I am ready to leave". Pt given Ativan 1mg at 2100. Monitoring ongoing.
[2016-05-22] MEDS: risperiDONE 2 mg Tablet PO SCH ×2 (08:08→20:58)
[2016-05-22 12:00] VITALS: BP 123/78; PULSE 104; RESP 12
--- NOTE | 2016-05-22 12:09 | PROG NOTE ---
[address] [address] PROGRESS NOTE PATIENT: GERA MARCANO : 1990 MR#: [id number] ADMIT: 05/13/2016 JOB ID: [id number] DATE: 05/22/2016 IDENTIFICATION: A 25-year-old, gentleman hospitalized involuntarily on this unit May 13, 2016. DIAGNOSES: 1. Unspecified psychotic disorder. 2. 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 MEDICATIONS: Risperdal 2 mg b.i.d. NARRATIVE: No acute pain or physical issues on this gentleman. The patient seen and discussed with staff. Possible discharge early next week. Improved sleep. Cooperative with care. Better intake. Still some anxiety. Two Ativan p.r.n. According to the staff, overall less pressured, less paranoid, easier to redirect. Verbalized his need for ongoing meds. He denies any intent to harm himself or others. He is appearing futuristic. Will continue management as is. Watch for sedation and EPS. Will need setting up of after discharge treatment with outpatient providers.
--- NOTE | 2016-05-22 13:54 | NUR ---
Gold Leaf Laborer./ c.m. S.:"I'm fine." O.: met with pt. and MD together. Pt. said that he was sleeping "pretty fluently", but he had to use a sleeping aid last night. He denied SI/HI, denied AH/VH, denied paranoid/delusional thoughts. He described his mood as "pretty good". He couldn't tell why he was taking meds but he said that they were helpful. He wasn't sure if he needed to take meds after discharge. He is aware of his discharge on Tuesday. He was in and out of his room during the day. A.: pt. is cooperative, pleasant, quiet, has a flat affect. P.: monitor behavior, encourage pt. to take meds, check Safety plan; follow care plan.
--- NOTE | 2016-05-22 17:21 | NUR ---
Nursing Day Shift S: "I've been drawing this deep freeze vending machine I invented." O: Patient discussing activities for the day. Has been out of his room a good part of the shift. Has been watching baseball on TV. Eating well at meals. Denies anxiety, depression, harmful thoughts, and hallucinations. A: Quiet. Courteous. Monotone. P: CPOC. Monitor mood and behavior.
--- NOTE | 2016-05-22 18:47 | NUR ---
OBSERVATIONS 0700 TO 1900 Pt was pleasant and cooperative with staff. Pt was isolative most of the shift but was social during meals and when engaged. Pt showered. Pt spent some time drawing and brainstorming ideas for inventions. Maintained Q15 safety checks as directed.
--- NOTE | 2016-05-22 22:53 | NUR ---
Nursing Notes 7pm to 11pm Pt is pleasant, calm, cooperative, eye contact good, no longer guarded or suspicious, speech is normal, rate and rhythm, denies A/VH, thoughts organized and linear, pt is future oriented, denies sx of depression and anxiety. Supportive or peers and participating in milieu activities, and is medication compliant. Pt given ambmariano for sleep and retired at approx 2200.
--- NOTE | 2016-05-23 02:37 | NUR ---
Observations 1900 to 0700 pt affect was flat. Pt hung out in the DR for most of the night but was isolative. pt was polite with staff. Pt had a hard time falling asleep Pt first appeared asleep at 22:45 and was observed every 15 minutes through the night as directed.
[2016-05-23] MEDS: LORazepam 1 mg Tablet PO PRN ×2 (03:08→18:37)
--- NOTE | 2016-05-23 04:09 | NUR ---
Nursing Note 11pm to 7am Pt with interrupted sleep this shift, " I woke up and can't go back to sleep". Pt given Ambien with HS meds, Ativan 1mg x2 and tylenol for knee pain. Pt went back to room after getting meds as there was no one in the dayroom to socialize with. Monitored pt for safety, location and accountability.
[2016-05-23] MEDS: risperiDONE 2 mg Tablet PO SCH ×2 (08:21→21:47)
[2016-05-23 08:34] VITALS: BP 129/87; PULSE 102; RESP 16
--- NOTE | 2016-05-23 09:59 | PROG NOTE ---
[address] [address] PROGRESS NOTE PATIENT: GERA MARCANO : 1990 MR#: [id number] ADMIT: 05/13/2016 JOB ID: [id number] DATE: 05/23/2016 IDENTIFICATION: A 25-year-old gentleman hospitalized involuntarily on this unit May 13, 2016. DIAGNOSES: 1. Unspecified psychotic disorder. 2. 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 MEDICATIONS: Risperdal 2 b.i.d. NARRATIVE: No acute pain or physical issues in this patient. Patient seen and discussed with staff. He had Ativan at 9 p.m. with Tylenol and then again at 4:10 in the morning. He is eager for discharge. In my session with him. Eye contact is variable, but affect is broad. Motor activity is normal. Speech is even pressured. No spontaneous delusions. No hallucinatory behavior. He appears to have limited insight into his need for being here. I encouraged him to talk to the psychiatrist on Tuesday about the discharge options. Therapist accompanying me for the rounds educated him regarding the discharge planning that had been done so far with him. We encouraged him to participate in the treatment modalities of the unit. At this point, his management stays the same.
--- NOTE | 2016-05-23 11:53 | NUR ---
Pan Reclaim Processor./ c.m. S.:"I'm inventing some things: vending machine, vacuum device... reading a few books about animal care. I'm drawing some pictures..." O.: met with pt. and MD together in pt.'s room. He didn't sleep well because he had a lot of things in his mind. He said that he "was busy inventing a few things." He denied SI/HI, denied AH/VH or paranoid/delusional thoughts. He showed MD and press writer 2 books that he was going to read and said that he would like to take them home because "they look interesting". He denied depression. He had "just a little anxiety" that he rated at 3/10. He was in and out of his room occasionally. He keeps mostly to himself. A.: pt. is cooperative, isolative, quiet, confused, looks internally preoccupied. He has a flat affect. P.: monitor behavior, check Safety plan, work on follow up; follow care plan.
--- NOTE | 2016-05-23 17:34 | NUR ---
Nursing Dayshift: S: "Good. How is your day going?" O: Patient's reciprocated reply when he is asked how his day is going. Has attended group activities. Good appetite at meals. Med compliant. Denies anxiety, depression, harmful thoughts, and hallucinations. A: Flat affect. Approachable. P: CPOC. Monitor mood and behavior.
--- NOTE | 2016-05-23 18:47 | NUR ---
Observations 0700 to 1900 Pt was guarded, isolative at times, friendly, quiet and flat. Pt appears to be preoccupied. Pt speech and eye contact was good. Pt was in and out of his room most of the shift. Pt attended meals in D.R. and ate 100% of his meals. Pt maintained behavior throughout the shift. Pt was polite and cooperative. Pt is minimally social with staff and peers, and just keeps to himself. Pt was observed reading, writing and drawing while in his room. Pt played Wii with peers and appeared to enjoy this. Pt was observed writing in journal. Pt was observed every 15 minutes throughout the shift as ordered.
[2016-05-23] MEDS: Zolpidem 5 mg Tablet for FEMALE or >65YO PO PRN (21:47)
[2016-05-24] MEDS: LORazepam 1 mg Tablet PO PRN ×2 (00:17→05:14)
--- NOTE | 2016-05-24 03:47 | NUR ---
Nursing Note Freight Engineer 7pm to 7am Pt spent shift alternating between bed area and common area carrying around a pencil and paper. When asked what he was writing he replied " I am working on my invention". Pt affect more restricted than the last few days. affect guarded, thoughts preoccupied. Pt received Ativan and Ambien with HS meds, did not fall asleep until 0100. Was in room writing furiously writing. When asked the content he was vague and evasive. Monitoring ongoing. Denies all sx of depression and anxiety and denies A/VH. Pt is medication compliant. No side effects noted or observed. Addendum: 05/24/16 at 0657 by JANEEN GRAYSON RN Pt approached assembly instructions writer at 0500 asking " Can I have something for my nerves"? Pt reported that he was having a hard time dealing with the "chaos" on the unit. The unit was very busy with several active and loud pts walking the halls at the time. Pt expressed delusional content stating I have been working on an invention. A deep freeze vending machine. I am going to add a barbecue and a washer and dryer so everyone can have a one stop shop in their home. Pt given ativan 1mg po prn and Risperidone 1mg po prn with good relief.
[2016-05-24] MEDS: risperiDONE 1 mg Tablet PO PRN (05:14)
[2016-05-24] MEDS: risperiDONE 2 mg Tablet PO SCH ×2 (08:13→20:55)
[2016-05-24 08:20] VITALS: BP 121/79; PULSE 121; RESP 16
[2016-05-24] MEDS ORDERED: Paliperidone Palmitate 234 mg/1.5 mL Inj IM ONE (11:25)
[2016-05-24] MEDS ORDERED: Paliperidone Palmitate 234 mg/1.5 mL Inj (NC) IM ONE (11:59)
--- NOTE | 2016-05-24 13:55 | NUR ---
Cable Placer./ c.m. S.: "Medications is working perfectly fine... I'm working on developing new music and working on inventions. I'm working on deep freezer vending machine and a special laundromat that will be energy saving and very officiant..." O.: met with pt. and MD together to discuss pt.'s progress. He didn't sleep well again because he "was working on new music of different type and inventions." He denied SI/HI, denied AH/VH, denied depression or anxiety. He agreed to do a monthly injection instead of pills. He completed Safety plan. Dry Box Operator called [facility] in [facility] and confirmed that pt. would be able to get his 2nd injection over there if he gets the 1st one here in the hospital. Pt. was in and out of his room during the day. A.: pt. is cooperative, pleasant, quiet, confused, paranoid and delusional, grandiose. P.: monitor behavior, monitor meds intake; follow care plan.
--- NOTE | 2016-05-24 14:09 | PCM.PNPSY ---
Subjective Date of Service May 24, 2016 Subjective The patient reports that his medications are, "working perfectly fine." When asked about his poor sleep, he reports that he finds working in the middle of the night and using the light boxes for drawing to be helpful. 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 He is also working on a number of inventions, one of which was a laundromat inspired by a relatives basement which had a washer/dryer as well as living area and entertainment area ; he would like to replicate this somewhere using 3 sets of washer/dryers. Another invention was a "deep freezer vending machine." He denied medication side effects and was agreeable to [employer]. No medical complaints. Sleep: 3.5 hours Appetite: "pretty good" Suicidal and homicidal ideation: denies Auditory hallucinations: denies Visual hallucinations: denies Other Psychotic Symptoms: limited insight, as above. Anxiety/Depression: "perfect" 0/10 Mental Status Exam Vital Signs Vital Signs Date Time Temp Pulse Resp B/P Pulse Ox O2 Delivery O2 Flow Rate FiO2 05/24/16 08:20 36.3 121 16 121/79 Appearance: Neat/well groomed Attitude: Pleasant, Cooperative Behavior: No unusual behavior Affect: Well Modulated/Appropriate Mood: Euthymic Thought Process/Associations: Logical/Sequential, Goal Directed Speech Production: Normal Speech Rate: Normal Speech Articulation: Normal Thought Content: Appropriate, Other (unrealistic thoughts as above, some thought disorganziaiton.) Danger to Self/Suicidal Ideati: None Danger to Others: None Hallucinations: Auditory (Denies), Visual (Denies) Consciousness: Alert Orientation: Person, Place, Date, Situation Memory: Grossly Intact Estimate Intellectual Function: Average Basis for IQ estimate: Word use/vocabulary, Educational history, Employment history Attention/Concentration & Cogn: Grossly Intact Insight: Limited Judgement: Limited Mental Health Plan The patient is a 25-year-old male with a history of schizophrenia, methamphetamine use disorder and cannabis use disorder. The patient reports having stopped using methamphetamine prior to last week but has used cannabis in the last week. The patient has responded well to risperidone but is still having some unrealistic or possibly grandiose plans but no glenn hallucinations. He also appears to have a mild thought disorder with mild thought disorganization. The patient was agreeable to starting [employer]. [place] I. 1. Schizophrenia, chronic paranoid type. 2. Methamphetamine use disorder. 3. Marijuana use disorder. 4. Hallucinogen use disorder, resolved. [place] II. Previous diagnosis of paranoid and schizotypal personality disorder. [place] III. Elevated CPK returning to normal. [place] IV. Substance use, chronic mental illness and limited social supports. [place] V. Global Assessment of Functioning 40. Medications Risperidone 2 mg twice daily Lorazepam 1 mg every 4 hours as needed for anxiety Risperidone 1 mg every 6 hours as needed for psychotic agitation Treatments 1. The patient is admitted to the [facility] and is provided a safe and secure environment. 2. The patient will be seen by the treatment team on a daily basis to assess symptoms, side effects and response to treatment. 3. The patient is currently denying any active suicidality and is not in need of a 1:1 at this time. 4. The patient is encouraged to participate with group and milieu activity. 5. Switch Risperidone to 4mg nightly to hopefully improve sleep 6. Invega Sustenna 234mg IM x 1 now then 156mg IM in one week. 7. Lorazepam 1 mg q.4 h. p.r.n. anxiety. 8. Zolpidem 5 mg nightly p.r.n. insomnia. 9. Risperidone 1 mg q.6 h. p.r.n. psychotic agitation. 10. CPK is trending down, LFTs WNL, no need for further labs. 11. Encourage patient to drink by mouth fluids. Given poor PO and reluctance to allow labs, will check UA. 12. Anticipated length of stay is 2-3 weeks. Noel Hoff MD May 24, 2016 14:09 Noel Hoff MD May 24, 2016 14:09 Education: Educate patient about recreational drug use as an etiology Address patient's legal status Patient is on a 90 day least restrictive alternative with 7 additional days involuntary treatment hold. Disposition: Home Noel Hoff MD May 24, 2016 14:09
--- NOTE | 2016-05-24 18:48 | NUR ---
Nursing: Day shift: S/O: Roel was out on the unit today. He showered twice. He is aware of court tomorrow and the plan that he discussed with his supervisor force adjustment. He denied depression, suicidal ideation, and anxiety. No behavioral dyscontrol. Polite toward staff. P: Assess for med effectiveness.
--- NOTE | 2016-05-24 19:39 | NUR ---
Observations 0900 to 2130 Pt was guarded, isolative at times, quiet and bright when engaged. Pt appears to be preoccupied. Pt speech and eye contact was good. Pt was in and out of his room most of the shift. Pt attended meals in D.R. and ate 100% of his meals. Pt maintained behavior throughout the shift. Pt was polite and cooperative. Pt is minimally social with staff and peers, and mostly keeps to himself. Pt was observed reading and writing throughout the day. Pt played Wii with peers and appeared to enjoy this. Pt was observed writing in journal. Pt attended community meeting, set a daily goal and rated his mood 8/10, with 10 being the best. Pt was observed every 15 minutes throughout the shift as ordered.
--- NOTE | 2016-05-25 03:45 | NUR ---
Observations 1900 to 0700 pt affect was flat. Pt hung out in the DR for most of the night but was isolative. pt was polite with staff. Pt had a hard time falling asleep Pt first appeared asleep at 23:00 and was observed every 15 minutes through the night as directed.
[2016-05-25 12:57] VITALS: BP 110/81; PULSE 110; RESP 18
--- NOTE | 2016-05-25 14:45 | NUR ---
Behavior/mood Pt. appeared to be pre-occupied. He came to nursing station asked for medications, otherwise sought little social interaction. He stated his mood was 10/10 "great" but his affect appeared to contradict his self assessed mood.
--- NOTE | 2016-05-25 15:00 | PCM.PNPSY ---
Subjective Date of Service May 25, 2016 Subjective The patient reports that his medications are working well. He reported that he had some difficulty with sleep, but ultimately, slept longer. He denies hallucinations and states, "just thinking about ideas and inventions." He denied medication side effects and was agreeable to Invega Sustenna. He believed that it had been a flu shot. Sleep: 5 hours Appetite: "not very well" Suicidal and homicidal ideation: denies Auditory hallucinations: denies Visual hallucinations: denies Other Psychotic Symptoms: limited insight, as above. Anxiety: "getting over congestion" Depression: denies Current Medications Current Medications Paliperidone Palmitate 234 mg ONCE ONCE IM Last administered on 05/24/16 15:53 ; Admin Dose 234 MG; Start 05/24/16 at 11:25; Stop 05/24/16 at 11:33; Status DC Risperidone 4 mg HS PO Last administered on 05/24/16 20:55; Admin Dose 4 MG; Start 05/24/16 at 21:00 Mental Status Exam Vital Signs Vital Signs Date Time Temp Pulse Resp B/P Pulse Ox O2 Delivery O2 Flow Rate FiO2 05/25/16 12:57 35.5 110 18 110/81 Appearance: Neat/well groomed Attitude: Pleasant, Cooperative Behavior: No unusual behavior Affect: Well Modulated/Appropriate Mood: Euthymic Thought Process/Associations: Logical/Sequential, Goal Directed Speech Production: Normal Speech Rate: Normal Speech Articulation: Normal Thought Content: Appropriate, Other ("Just thinking about ideas and inventions ") Danger to Self/Suicidal Ideati: None Danger to Others: None Hallucinations: Auditory (Denies), Visual (Denies) Consciousness: Alert Orientation: Person, Place, Date, Situation Memory: Grossly Intact Estimate Intellectual Function: Average Basis for IQ estimate: Word use/vocabulary, Educational history, Employment history Attention/Concentration & Cogn: Grossly Intact Insight: Limited Judgement: Limited Mental Health Plan The patient is a 25-year-old male with a history of schizophrenia, methamphetamine use disorder and cannabis use disorder. The patient reports having stopped using methamphetamine prior to last week but has used cannabis in the last week. The patient has responded well to risperidone but is still having some unrealistic or possibly grandiose plans but no glenn hallucinations. He also appears to have a mild thought disorder with mild thought disorganization. The patient was agreeable to starting Invega Sustenna , had his first injection, and denied side effects. Sleep longer with risperidone at bedtime. [place] I. 1. Schizophrenia, chronic paranoid type. 2. Methamphetamine use disorder. 3. Marijuana use disorder. 4. Hallucinogen use disorder, resolved. [place] II. Previous diagnosis of paranoid and schizotypal personality disorder. [place] III. Elevated CPK returning to normal. [place] IV. Substance use, chronic mental illness and limited social supports. [place] V. Global Assessment of Functioning 40. Medications Risperidone 4 mg nightly Invega Sustenna 234mg IM on 05/24/16 next dose 156mg on 05/31/16 Lorazepam 1 mg every 4 hours as needed for anxiety Risperidone 1 mg every 6 hours as needed for psychotic agitation Treatments 1. The patient is admitted to the [facility] and is provided a safe and secure environment. 2. The patient will be seen by the treatment team on a daily basis to assess symptoms, side effects and response to treatment. 3. The patient is currently denying any active suicidality and is not in need of a 1:1 at this time. 4. The patient is encouraged to participate with group and milieu activity. 5. Continue Risperidone 4mg nightly 6. Invega Sustenna 234mg IM on 05/24/16 then 156mg IM in one week. 7. Lorazepam 1 mg q.4 h. p.r.n. anxiety. 8. Zolpidem 5 mg nightly p.r.n. insomnia. 9. Risperidone 1 mg q.6 h. p.r.n. psychotic agitation. 10. CPK is trending down, LFTs WNL, no need for further labs. 11. Anticipated length of stay is 2-3 days. Noel Hoff MD May 25, 2016 15:00
--- NOTE | 2016-05-25 18:49 | NUR ---
Observations [id number] Pt was awake in the dining area upon start of shift. Pt shared that he didn't get much sleep the night prior. He is very polite and social with peers when approached. Pt asked for blank paper to work on "his project." Pt attended all meals, and presents with a large appetite eating 100%.. He attended group and Community Meeting. Pt took a shower in the morning and did laundry. He was observed every 15 minutes of shift as directed.
--- NOTE | 2016-05-25 19:47 | NUR ---
Nurses Note Evening Patient has been polite and friendly with good eye contact and remained active and social on the unit. He has remained medication compliant without adverse effects. His thoughts have been clear,organized and grandiose at times. Will encourage improved insight into illness,management of same with continued medication compliance and follow-up. Addendum: 05/25/16 at 1950 by SHAY SMITH RN Amended: Links added.
[2016-05-25] MEDS: risperiDONE 2 mg Tablet PO SCH (22:00)
--- NOTE | 2016-05-26 02:23 | NUR ---
Observations 1900 to 0700 pt affect was flat. Pt hung out in the DR for most of the night but was isolative. pt was polite with staff. Pt is sleeping better than previous nights here. Pt first appeared asleep at 22:30 and was observed every 15 minutes through the night as directed.
--- NOTE | 2016-05-26 05:31 | NUR ---
Sleep Adequate sleep through the night with no noted distress per protocol checks. Up briefly for a snack and returned to bed. Total sleep 6+ hours.
--- NOTE | 2016-05-26 12:12 | PCM.PNPSY ---
Subjective Date of Service May 26, 2016 Subjective The patient reports that his medications are working well. He reported that he was sleeping well and was taking a couple of catnaps during the day. He is a little anxious, looking forward to discharging tomorrow. He reports that he will check in with his employer after going in for his mental health intake. He denies hallucinations and states, "just thinking about ideas and inventions. " He denied medication side effects. No cogwheeling or dystonia on exam. Sleep: 6+ hours Appetite: "good" Suicidal and homicidal ideation: denies Auditory hallucinations: denies Visual hallucinations: denies Other Psychotic Symptoms: "ideas and inventions" noted above. Anxiety: denies Depression: denies Current Medications Current Medications Risperidone 4 mg HS PO Last administered on 05/25/16t 22:00; Admin Dose 4 MG; Start 05/24/16 at 21:00 Mental Status Exam Appearance: Neat/well groomed Attitude: Pleasant, Cooperative Behavior: No unusual behavior Affect: Well Modulated/Appropriate Mood: Euthymic Thought Process/Associations: Logical/Sequential, Goal Directed Speech Production: Normal Speech Rate: Normal Speech Articulation: Normal Thought Content: Appropriate, Other ("Just thinking about ideas and inventions ") Danger to Self/Suicidal Ideati: None Danger to Others: None Hallucinations: Auditory (Denies), Visual (Denies) Consciousness: Alert Orientation: Person, Place, Date, Situation Memory: Grossly Intact Estimate Intellectual Function: Average Basis for IQ estimate: Word use/vocabulary, Educational history, Employment history Attention/Concentration & Cogn: Grossly Intact Insight: Limited Judgement: Limited Mental Health Plan The patient is a 25-year-old male with a history of schizophrenia, methamphetamine use disorder and cannabis use disorder. The patient reports having stopped using methamphetamine a week prior to admission and cannabis in the week prior to admission. The patient has responded well to risperidone but is still having some unrealistic or possibly grandiose plans but no glenn hallucinations. He also appears to have a mild thought disorder with mild thought disorganization but is improved today. The [facility] had his first injection, and denies side effects. Sleep is improved. [place] I. 1. Schizophrenia, chronic paranoid type. 2. Methamphetamine use disorder. 3. Marijuana use disorder. 4. Hallucinogen use disorder, resolved. [place] II. Previous diagnosis of paranoid and schizotypal personality disorder. [place] III. Elevated CPK returning to normal. [place] IV. Substance use, chronic mental illness and limited social supports. [place] V. Global Assessment of Functioning 40. Medications Risperidone 4 mg nightly Invega Sustenna 234mg IM on 05/24/16 next dose 156mg on 05/31/16 Lorazepam 1 mg every 4 hours as needed for anxiety Risperidone 1 mg every 6 hours as needed for psychotic agitation Treatments 1. The patient is admitted to the [facility] and is provided a safe and secure environment. 2. The patient will be seen by the treatment team on a daily basis to assess symptoms, side effects and response to treatment. 3. The patient is currently denying any active suicidality and is not in need of a 1:1 at this time. 4. The patient is encouraged to participate with group and milieu activity. 5. Continue Risperidone 4mg nightly taper once stable on Sustenna 6. Invega Sustenna 234mg IM on 05/24/16 then 156mg IM in one week. 7. Lorazepam 1 mg q.4 h. p.r.n. anxiety. 8. Zolpidem 5 mg nightly p.r.n. insomnia. 9. Risperidone 1 mg q.6 h. p.r.n. psychotic agitation. 10. CPK is trending down, LFTs WNL, will check labs today. 11. Anticipated discharge in am. Noel Hoff MD May 26, 2016 12:12
[2016-05-26 12:15] VITALS: BP 135/77; PULSE 128; RESP 16
[2016-05-26 12:53] LABS: BASOPHILS % (AUTO) 0.4 % (0-3); EOSINOPHILS % (AUTO) 0.8 % (0-5); MONOCYTES % (AUTO) 6.9 % (4-12); Mean Corpuscular Hemoglobin 29.1 pg (27.0-35.0); Mean Corpuscular Volume 88.3 fL (81-100); NEUTROPHILS % (AUTO) 75.6 % (40-74); Platelet Count 231 bil/L (150-400)
--- NOTE | 2016-05-26 16:40 | NUR ---
Nursing Notes Day S: "Going to leave tomorrow then find a job soon" O: Pt cooperative, pleasant and participating in group. Pt states that his anxiety is a 3/10 and that he has no suicidal ideations. Pt is looking forward to going home tomorrow. A: Pt affect is appropriate, pt makes eye contact, interacts with other patients and staff, he was out of his room most of the day. P: Monitor for safety and response to treatment. Follow plan of care.
--- NOTE | 2016-05-26 18:58 | NUR ---
Counseling/Finished Carpet Inspector: S/O: Patient slept 6+ hours last night per staff. He denies S/I and H/I. He denies auditory an visual hallucinations. Depression is 0/10 and anxiety is 0/10. When asked his mood, patient stated, "Anxious." A: Patient is cooperative, pleasant, hopeful, soft spoken, ready to discharge. P: Follow care plan, coordinate out-patient providers.
--- NOTE | 2016-05-26 20:21 | NUR ---
Obs Dayshift Pt is polite, engaged, appropriate, calm, participating. Pt is Oriented, forward thinking and hopeful to DC at the end of this week. Good ADL's, Good meals
[2016-05-26] MEDS: risperiDONE 2 mg Tablet PO SCH (21:38)
[2016-05-26] MEDS: Zolpidem 5 mg Tablet for FEMALE or >65YO PO PRN (21:38)
[2016-05-27] MEDS: LORazepam 1 mg Tablet PO PRN ×2 (01:27→11:34)
--- NOTE | 2016-05-27 05:16 | NUR ---
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 Less perseverative on inventions this shift, no delusional statements elicited or reported. Pt reports he is glad he is gaining weight and indicated I have learned how to eat properly since being here. I have tried foods I didnt think I would like. Pt given Ambien 5mg with HS meds. Pt awake at 0100 requesting Ativan for anxiety 07/17, "Not sure why I cant go back to sleep, lots going on" , denies pain. Pt went back to bed. monitored pt. q 15 minutes for safety location and accountability.
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
--- NOTE | 2016-05-27 11:19 | PCM.DIMED ---
Discharge Instructions Date of Service May 27, 2016 Dates of Hospitalization May 13, 2016 at 19:34 Discharge Diagnosis Discharge Diagnosis [place] I. 1. Schizophrenia, chronic paranoid type. 2. Methamphetamine use disorder. 3. Marijuana use disorder. 4. Hallucinogen use disorder, resolved. [place] II. Previous diagnosis of paranoid and schizotypal personality disorder. [place] III. Elevated CPK returned to normal. [place] IV. Substance use, chronic mental illness and limited social supports. [place] V. Global Assessment of Functioning 50. Test Results Laboratory Tests 72 Hours Test 05/26/16 12:45 White Blood Count 7.4th/mm3 (3.8-10.1) Red Blood Count 5.12mil/mm3 (4.40-5.80) Hemoglobin 14.9g/dL (13.8-17.2) Hematocrit 45.2% (41.0-50.0) Mean Corpuscular Volume 88.3fL (81-100) Mean Corpuscular Hemoglobin 29.1pg (27.0-35.0) Mean Corpuscular Hemoglobin Concent 33.0% (32.0-37.0) Red Cell Distribution Width 13.0% (12.3-15.4) Platelet Count 231bil/L (150-400) Neutrophils (%) (Auto) 75.6% (40-74) Lymphocytes (%) (Auto) 15.9% (14-46) Monocytes (%) (Auto) 6.9% (4-12) Eosinophils (%) (Auto) 0.8% (0-5) Basophils (%) (Auto) 0.4% (0-3) Sodium Level 140mEq/L (134-144) Potassium Level 4.5mEq/L (3.5-5.2) Chloride Level 100mEq/L (97-108) Carbon Dioxide Level 27mmol/L (18-29) Blood Urea Nitrogen 17mg/dL (6-20) Creatinine 1.04mg/dL (0.76-1.27) Estimat Glomerular Filtration Rate 92mL/min (>59) Glucose Level 127mg/dL (60-99) Calcium Level 9.0mg/dL (8.5-10.1) Total Bilirubin 0.2mg/dL (0.0-1.2) Aspartate Amino Transf (AST/SGOT) 17U/L (0-50) Alanine Aminotransferase (ALT/SGPT) 16U/L (0-44) Alkaline Phosphatase 96U/L (25-150) Total Creatine Kinase 164U/L (21-232) Total Protein 6.3g/dL (6.4-8.4) Albumin 3.9g/dL (3.4-5.0) Diet No restrictions Activity No restrictions Patient Instructions Should you have any thoughts of harming yourself or others, please call the crisis line, your provider, 911, or go to the nearest Emergency Department. Do not change or discontinue your medications without discussing with your provider. You have been given a prescription for 30 days supply of your medication. You are due for your next Invega Sustenna injection on 05/31/16. Follow-up plan Intake appointment: [facility] Newton on 05/27/16 @12:30 [facility] [address] [place] [address] Provider appointment: Rochelle Wolfe/Ivonne MOBLEY on 05/31/16 @10:00 [facility] [address] [place] [address] Noel Hoff MD May 27, 2016 11:19
[2016-05-27] MEDS ORDERED: ZLP5T PO (11:27)
[2016-05-27] MEDS ORDERED: RISP2TAB21 PO (11:27)
[2016-05-27] MEDS ORDERED: LORA-303 PO (11:27)
[2016-05-27] MEDS ORDERED: PALI156D IM (11:27)
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
--- NOTE | 2016-05-27 12:04 | NUR ---
discharge note 12pm Pt dc'd with cab leaving for 12:30 appointment, verbalized understanding of medications and appointments, medications faxed to preferred pharmacy, states pain in jaw unchanged and no redness noted
--- NOTE | 2016-05-27 12:40 | NUR ---
Counseling/Aircraft Landing Gear Inspector: S: "So I'm officially discharging today?" O: Patient slept 6 hours last night per staff. He denies S/I and H/I. He denies auditory an visual hallucinations. Depression is 0/10 and anxiety is 0/10. When asked his mood, patient stated, "Better." A: Patient is cooperative, pleasant, hopeful, hopeful, ready to discharge. P: Follow care plan, coordinate out-patient providers. Addendum: 05/27/16 at 1256 by NUVIA PERSON [facility] Out-patient appointments: [facility] Newton, [facility] counselor, 05/27/16 at 12:30pm and LEANDRA Sevilla, prescriber, [facility], 05/31/16 at 10:00am.
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
== END 2016-05-27 12:00 | disposition home or self-care (01) | DRG 750 ==
LOC: SED 13:43 → MHC 19:34
PROVIDERS: ADMIT Psychiatry & Neurology Psychiatry; ATTEND Psychiatry & Neurology Psychiatry
DX: F20.0 Paranoid schizophrenia (principal); F17.210 Nicotine dependence, cigarettes, uncomplicated; F15.90 Other stimulant use, unspecified, uncomplicated; F12.90 Cannabis use, unspecified, uncomplicated

== ENCOUNTER 2016-06-16 12:26 | Emergency (ER) | payer MEDICARE, OTHER ==
[~2016-06-16] VITALS: Ht 180.3 cm; Wt 72.7 kg
[~2016-06-16 12:26] MED LIST changes: +LORA-303 PO; -OLAN10TA5 PO; +PALI156D IM; +RISP2TAB21 PO; +ZLP5T PO
[2016-06-16 12:31] VITALS: BP 139/80; PULSE 113; RESP 16; O2SAT 98
--- NOTE | 2016-06-16 12:54 | ED.REPORT ---
HPI-Psychiatric Illness Date of Service June 16, 2016 ED Provider: Eddie Cox MD A 25 year old male with a history of paranoid schizophrenia and polysubstance abuse presents to the ED with visual hallucinations increasing over the past few days. Associated symptoms include auditory hallucinations and paranoia. He describes a "heat wave" coming over him, seeing figures, and hearing "worrying" voices. The patient was recently admitted to the hospital (05/13 - 05/27) with similar symptoms secondary to paranoid schizophrenia. He is concerned that his symptoms are returning. The patient denies suicidal ideation, homicidal ideation , or other symptoms. He is not currently taking any medications, reportedly coming to an "agreement" with his prescriber regarding this. Nursing Notes Stated Complaint: EPISODE OF HEAT WAVES, TRANSPARENT DELUSIONS Chief Complaint: Psychiatric Complaint Nursing Notes Reviewed: Yes Allergies: Coded Allergies: risperidone (Verified Allergy, Unknown, rash, 06/16/16) Scheduled Haloperidol (Haloperidol) 5 Mg Tablet 5 MG PO HS Paliperidone Palmitate Inj (Invega Sustenna) 156 Mg/1 Ml Syringe 156 MG IM Q30D Next dose due 05/31/16 Risperidone (Risperdal) 2 Mg Tablet 2 MG PO DIRECTED Take 2 tablets (4mg) nightly for 10 days then 1 tablet nightly for 2 weeks then stop. Scheduled PRN Lorazepam (Ativan) 1 Mg Tablet 1 MG PO BID PRN PRN For Anxiety Lorazepam (Ativan) 1 Mg Tablet 1 MG PO TID PRN PRN For Anxiety Zolpidem (Ambien) 5 Mg Tablet 5 MG PO HS PRN PRN Insomnia Zolpidem (Ambien) 5 Mg Tablet 5 MG PO HS PRN PRN For Insomnia General Time Seen by MD: 12:50 Chief Complaint Hallucinations, visual Hx Obtained From: Patient Arrived By: Walk-in Onset Occurred: 3 days ago (Increasing over past few days) Symptom Duration: Since onset Progression Since Onset: Gradually worsening Severity: Current: No pain currently Severity: Maximum: No pain Pertinent Negative: Relieved by nothing Related History: Reports: Illicit drug use, Schizophrenia Immunizations: Unknown Recent Healthcare: Recent hospitalization Similar Sx Previous: Yes Risk-Psychiatric Illness Suicide Risk Stratification RF Statements: Risk factors reviewed Past Medical History Past Medical History Paranoid Schizophrenia History of polysubstance abuse (meth) Psychiatric admit (05/13 - 4/20) Past Surgical History R hernia repair Smoking History Light Tobacco Smoker Social History History of polysubstance abuse by history Drug Use: THC Other Social History: Good social support, Local resident Ambulatory Status Independent Review of Systems Review of Systems Note: + Paranoia Constitutional: Denies: Fever Respiratory: Denies: Non-productive cough, Shortness of breath GI: Denies: Diarrhea, Vomiting Psychiatric: Reports: Hallucinations, auditory, Hallucinations, visual, Denies: Homicidal ideation, Suicidal ideation Complete sys rev & neg: except as marked. Physical Exam Initial Vital Signs Vital Signs (First) Date Time Temp Pulse Resp B/P Pulse Ox O2 Delivery O2 Flow Rate FiO2 06/16/16 12:31 36.6 113 16 139/80 98 Room Air Initial VS: Reviewed Head / Eyes: Atraumatic, Normocephalic ENT: Conjunctiva normal, No scleral icterus Neck: Supple, Full range of motion Respiratory: Breath sounds normal, Clear to auscultation, No respiratory distress Cardiovascular: Regular rate & rhythm, Heart sounds normal Skin: Warm, Dry, No cyanosis General/Constitutional: Awake, Alert Neurologic: Oriented X3, Speech NL Psychiatric: Not suicidal, Not homicidal, Judgment/insight NL Abnormal Thinking / Perception: Positive: Hallucinations, auditory, Hallucinations, visual Interpretation & Diagnostics URINE DRUG SCREEN: Negative Lab Results Interpretation Result Diagram: 06/16/16 1420 06/16/16 1420 Test 06/16/16 14:20 06/16/16 16:22 White Blood Count 10.7th/mm3 (3.8-10.1) Red Blood Count 5.11mil/mm3 (4.40-5.80) Hemoglobin 14.9g/dL (13.8-17.2) Hematocrit 43.7% (41.0-50.0) Mean Corpuscular Volume 85.5fL (81-100) Mean Corpuscular Hemoglobin 29.2pg (27.0-35.0) Mean Corpuscular Hemoglobin Concent 34.1% (32.0-37.0) Red Cell Distribution Width 12.5% (12.3-15.4) Platelet Count 356bil/L (150-400) Neutrophils (%) (Auto) 80.6% (40-74) Lymphocytes (%) (Auto) 10.2% (14-46) Monocytes (%) (Auto) 7.2% (4-12) Eosinophils (%) (Auto) 0.5% (0-5) Basophils (%) (Auto) 0.4% (0-3) Sodium Level 139mEq/L (134-144) Potassium Level 4.4mEq/L (3.5-5.2) Chloride Level 101mEq/L (97-108) Carbon Dioxide Level 23mmol/L (18-29) Blood Urea Nitrogen 21mg/dL (6-20) Creatinine 0.87mg/dL (0.76-1.27) Estimat Glomerular Filtration Rate 114mL/min (>59) Glucose Level 126mg/dL (60-99) Calcium Level 9.2mg/dL (8.5-10.1) Total Bilirubin 0.2mg/dL (0.0-1.2) Aspartate Amino Transf (AST/SGOT) 13U/L (0-50) Alanine Aminotransferase (ALT/SGPT) 14U/L (0-44) Alkaline Phosphatase 96U/L (25-150) Total Protein 6.3g/dL (6.4-8.4) Albumin 3.8g/dL (3.4-5.0) Thyroid Stimulating Hormone (TSH) 1.710uIU/mL (0.450-4.500) Hold Quintero Top Tube Received (Received) Hold Urine Received (Received) Re-Eval/Medical Decision Med Decision/Clinical Course He is calm and cooperative without suicidal or homicidal ideation. He agrees to return to the emergency Department if things are worse. He has follow-up arranged tomorrow with his prescriber. I provided him with medications that should control his symptoms overnight. Source of Hx: Old records Re-Evaluation/Progress : Time of Eval: 17:39 Patient Status: Condition improved Re-Evaluation/Progress Note: Patient was seen by Social Work who discussed with patient lab results, diagnosis, and plan for depart with close outpatient follow-up. Follow-up and return to the ER instructions given. Patient agrees with plan for care and all questions were addressed. Consultation #1: Consulted With: recreation worker Call Returned at: 15:11 Military Analyst: Will see patient, Agrees with eval, Agrees with plan Consultation #2: Consulted With: recreation worker Call Returned at: 17:16 Military Analyst: Agrees with eval, Agrees with plan Note: Social Work evaluated patient. He agrees with discharge and medication for tonight with follow-up tomorrow. Counseled Regarding: Diagnosis, Lab results, Need for follow-up, When/why to return to ED Discharge & Departure Impression: Primary Impression: Schizophrenia Schizophrenia type: paranoid schizophrenia Qualified Code: F20.0 - Paranoid schizophrenia Disposition: Home Discharge Condition All VS Reviewed: Yes Condition: Improved Patient Instructions: Schizophrenia (ED) Additional Instructions: Take the medication as prescribed tonight to help you sleep and to calm your thoughts. Things are going very poorly tonight, return to the emergency Department. Otherwise, go to the clinic visit tomorrow. I gave you: Haloperidol 5 mg Ativan 1 mg tablets every 6 hours as needed Ambien 5 mg at bedtime Referrals: Steffi Pineda MD (PCP) Janee Giraldo Attestation Portions of this note were transcribed by Brandy Castro. I, Dr. Cox, personally performed the history, physical exam, and medical decision-making; I reviewed and confirmed the accuracy of the information in the transcribed note. Signed by: Frank Jj, 06/16/2016, 17:45 copies to: Janee Giraldo; Steffi Pineda MD, Kirk H MD June 16, 2016 12:53 BRANDY CASTRO June 16, 2016 13:01
[2016-06-16] MEDS ORDERED: LORazepam 1 mg Tablet PO ONE (13:55)
[2016-06-16] MEDS ORDERED: risperiDONE 2 mg Tablet PO ONE (13:55)
[2016-06-16 14:33] LABS: BASOPHILS % (AUTO) 0.4 % (0-3); EOSINOPHILS % (AUTO) 0.5 % (0-5); MONOCYTES % (AUTO) 7.2 % (4-12); Mean Corpuscular Hemoglobin 29.2 pg (27.0-35.0); Mean Corpuscular Volume 85.5 fL (81-100); NEUTROPHILS % (AUTO) 80.6 % (40-74); Platelet Count 356 bil/L (150-400)
[2016-06-16] MEDS ORDERED: HAL5 PO (17:20)
[2016-06-16] MEDS ORDERED: ZLP5T PO (17:20)
[2016-06-16] MEDS ORDERED: LORA-303 PO (17:20)
[2016-06-16 18:37] VITALS: BP 139/80; PULSE 113; RESP 16; O2SAT 98
== END 2016-06-16 17:45 | disposition home or self-care (01) ==
LOC: SED 12:26
DX: F20.0 Paranoid schizophrenia (principal); R44.0 Auditory hallucinations; F17.200 Nicotine dependence, unspecified, uncomplicated; Z88.8 Allergy status to other drugs, medicaments and biological substances

== ENCOUNTER 2016-06-22 05:42 | Emergency (ER) | payer OTHER ==
[~2016-06-22] VITALS: Ht 182.9 cm; Wt 72.7 kg
[~2016-06-22 05:42] MED LIST changes: +HAL5 PO
[2016-06-22 05:46] VITALS: BP 125/80; PULSE 56; RESP 14; O2SAT 96
--- NOTE | 2016-06-22 06:49 | ED.REPORT ---
HPI-Psychiatric Illness Date of Service June 22, 2016 ED Provider: Nicholas Delarosa DO A pleasant 25 year old male with schizophrenia and polysubstance abuse presents to the ER complaining of visual hallucinations onset upon awakening this morning. He states that he was admitted to [facility] for [facility] 16 day stay for similar, discharged four weeks ago. Currently he does not have a psychiatrist, but he has [facility] since his [facility] stay and medicating with Haldol and Ambien. These medications have been effective in suppressing his symptoms until this morning. Patient denies suicidal or homicidal ideations, recent drug and alcohol abuse, and any other symptoms. Nursing Notes Stated Complaint: HALLUCINATIONS Chief Complaint: Psychiatric Complaint Nursing Notes Reviewed: Yes Allergies: Coded Allergies: risperidone (Verified Allergy, Unknown, rash, 06/16/16) Scheduled Haloperidol (Haloperidol) 5 Mg Tablet 5 MG PO HS Paliperidone Palmitate Inj (Invega Sustenna) 156 Mg/1 Ml Syringe 156 MG IM Q30D Next dose due 05/31/16 Risperidone (Risperdal) 2 Mg Tablet 2 MG PO DIRECTED Take 2 tablets (4mg) nightly for 10 days then 1 tablet nightly for 2 weeks then stop. Scheduled PRN Lorazepam (Ativan) 1 Mg Tablet 1 MG PO BID PRN PRN For Anxiety Lorazepam (Ativan) 1 Mg Tablet 1 MG PO TID PRN PRN For Anxiety Zolpidem (Ambien) 5 Mg Tablet 5 MG PO HS PRN PRN Insomnia Zolpidem (Ambien) 5 Mg Tablet 5 MG PO HS PRN PRN For Insomnia General Time Seen by MD: 06:47 Chief Complaint Hallucinations, visual Hx Obtained From: Patient Arrived By: Walk-in Onset Occurred: 1 - 4 hours ago Symptom Duration: Since onset Pertinent Negative: Pt denies other symptoms Recent Healthcare: Recent doctor visit, Recent hospitalization Similar Sx Previous: Yes Risk-Psychiatric Illness Suicide Risk Stratification Suicide Risk Factors - Adult: : Prior psych admissionNo: Alcohol use RF Statements: Risk factors reviewed Past Medical History Past Medical History Paranoid Schizophrenia History of polysubstance abuse (meth) Psychiatric admit (05/13 - 05/27) Past Surgical History R hernia repair Smoking History Light Tobacco Smoker Social History History of polysubstance abuse by history Drug Use: THC Other Social History: Good social support, Local resident Ambulatory Status Independent Review of Systems Psychiatric: Reports: Hallucinations, visual, Denies: Change mental status, Confusion, Hallucinations, auditory, Homicidal ideation, Hostile, Suicidal ideation, Unable to control self Complete sys rev & neg: except as marked. Physical Exam Initial Vital Signs Vital Signs (First) Date Time Temp Pulse Resp B/P Pulse Ox O2 Delivery O2 Flow Rate FiO2 06/22/16 05:46 36.3 56 14 125/80 96 Room Air Initial VS: Reviewed Head / Eyes: Atraumatic, Normocephalic Neck: Supple, Non-tender, Full range of motion Extremities: Vascular intact, Neuro intact, No swelling, No tenderness Skin: Warm, Dry, No cyanosis General/Constitutional: Awake, Alert, Well appearing, Well developed, Well hydrated, Well nourished, Cooperative Neurologic: Oriented X3, Speech NL, No motor deficits, No sensory deficits Psychiatric: Affect NL, Mood NL, Not suicidal, Not homicidal, Cognitive function NL, Judgment/insight NL Abnormal Thinking / Perception: Positive: Hallucinations, visual ENT: Airway patent, Pharynx NL Interpretation & Diagnostics Lab Results Interpretation Result Diagram: 06/22/16 0655 06/22/16 0655 Test 06/22/16 06:53 06/22/16 06:55 Hold Urine Received (Received) White Blood Count 6.9th/mm3 (3.8-10.1) Red Blood Count 5.04mil/mm3 (4.40-5.80) Hemoglobin 14.7g/dL (13.8-17.2) Hematocrit 43.2% (41.0-50.0) Mean Corpuscular Volume 85.7fL (81-100) Mean Corpuscular Hemoglobin 29.2pg (27.0-35.0) Mean Corpuscular Hemoglobin Concent 34.0% (32.0-37.0) Red Cell Distribution Width 12.9% (12.3-15.4) Platelet Count 215bil/L (150-400) Neutrophils (%) (Auto) 75.5% (40-74) Lymphocytes (%) (Auto) 16.2% (14-46) Monocytes (%) (Auto) 5.8% (4-12) Eosinophils (%) (Auto) 0.9% (0-5) Basophils (%) (Auto) 0.6% (0-3) Sodium Level 138mEq/L (134-144) Potassium Level 3.9mEq/L (3.5-5.2) Chloride Level 99mEq/L (97-108) Carbon Dioxide Level 23mmol/L (18-29) Blood Urea Nitrogen 20mg/dL (6-20) Creatinine 0.91mg/dL (0.76-1.27) Estimat Glomerular Filtration Rate 108mL/min (>59) Glucose Level 180mg/dL (60-99) Calcium Level 9.1mg/dL (8.5-10.1) Total Bilirubin 0.2mg/dL (0.0-1.2) Aspartate Amino Transf (AST/SGOT) 24U/L (0-50) Alanine Aminotransferase (ALT/SGPT) 97U/L (0-44) Alkaline Phosphatase 90U/L (25-150) Total Protein 6.1g/dL (6.4-8.4) Albumin 3.7g/dL (3.4-5.0) Thyroid Stimulating Hormone (TSH) 3.390uIU/mL (0.450-4.500) Hold Quintero Top Tube Received (Received) Re-Eval/Medical Decision Med Decision/Clinical Course Patient arises hallucinations which have been present for an extended period of time, he is not homicidal or suicidal he is not gravely disabled. Does not meet criteria for admission or involuntary detainment. He is given an extra dose of Haldol and is feeling better, he declines to see social work, he is medically stable to be discharged. I recommend he follow closely with his counselor and prescriber. Return and follow-up precautions given. Source of Hx: Old records Re-Evaluation/Progress : Time of Eval: 08:57 Re-Evaluation/Progress Note: Continuing to have visual hallucinations. He would like to speak with social welfare administrator. All questions addressed. Counseled Regarding: Diagnosis, Lab results Discharge & Departure Impression: Primary Impression: Hallucination )( Condition at Discharge: No danger to self, No danger to others, No suicidal ideation, No homicidal ideation Disposition: Home Discharge Condition All VS Reviewed: Yes Condition: Stable Additional Instructions: Continue your regular medicine. Follow-up with your primary care, your counselor, and a psychiatrist for further mental health evaluation. Return to the ER as needed for auditory or visual hallucinations, suicidal or homicidal thoughts, or any other concerns. Referrals: Steffi Pineda MD (PCP) [facility] Scribe Attestation Portions of this note were transcribed by Rios Brasher. I, Dr. Delarosa, personally performed the history, physical exam and medical decision-making; I reviewed and confirmed the accuracy of the information in the transcribed note. Signed by: Frank White, 06/22/2016 and 09:47 copies to: Steffi Pineda MD ; [facility]; [facility] Nicholas Delarosa DO June 22, 2016 06:49 RIOS BRASHER June 22, 2016 06:57
[2016-06-22 07:12] LABS: BASOPHILS % (AUTO) 0.6 % (0-3); EOSINOPHILS % (AUTO) 0.9 % (0-5); MONOCYTES % (AUTO) 5.8 % (4-12); Mean Corpuscular Hemoglobin 29.2 pg (27.0-35.0); Mean Corpuscular Volume 85.7 fL (81-100); NEUTROPHILS % (AUTO) 75.5 % (40-74); Platelet Count 215 bil/L (150-400)
[2016-06-22 10:05] VITALS: BP 119/74; PULSE 106; RESP 18; O2SAT 95
== END 2016-06-22 10:07 | disposition home or self-care (01) ==
LOC: SED 05:42
DX: R44.1 Visual hallucinations (principal); F20.9 Schizophrenia, unspecified; F17.200 Nicotine dependence, unspecified, uncomplicated; Z88.8 Allergy status to other drugs, medicaments and biological substances

== ENCOUNTER 2016-06-29 13:55 | Emergency (ER) | payer OTHER ==
[~2016-06-29] VITALS: Ht 182.9 cm; Wt 68.2 kg
[2016-06-29 14:02] VITALS: BP 142/88; PULSE 105; RESP 18; O2SAT 97
--- NOTE | 2016-06-29 14:34 | ED.REPORT ---
HPI-Psychiatric Illness Date of Service June 29, 2016 ED Provider: History of Present Illness: having voices screaming his name and odd commands. halluculinations have returned.voices since he was 21. Voices off and on for a week and then returned worse. takes haldiol and ambien. [facility]en at [facility]. unknown if any primary care. wants to be admitted. Nursing Notes Stated Complaint: HALLUCINATIONS Chief Complaint: Psychiatric Complaint Allergies: Coded Allergies: risperidone (Verified Allergy, Unknown, rash, 06/16/16) Scheduled Haloperidol (Haloperidol) 5 Mg Tablet 5 MG PO HS Paliperidone Palmitate Inj (Invega Sustenna) 156 Mg/1 Ml Syringe 156 MG IM Q30D Next dose due 05/31/16 Risperidone (Risperdal) 2 Mg Tablet 2 MG PO DIRECTED Take 2 tablets (4mg) nightly for 10 days then 1 tablet nightly for 2 weeks then stop. Scheduled PRN Lorazepam (Ativan) 1 Mg Tablet 1 MG PO BID PRN PRN For Anxiety Lorazepam (Ativan) 1 Mg Tablet 1 MG PO TID PRN PRN For Anxiety Zolpidem (Ambien) 5 Mg Tablet 5 MG PO HS PRN PRN Insomnia Zolpidem (Ambien) 5 Mg Tablet 5 MG PO HS PRN PRN For Insomnia General Time Seen by MD: 14:34 Chief Complaint Bizarre behavior Hx Obtained From: Patient Onset Occurred: 1 week ago Symptom Duration: Since onset Risk-Psychiatric Illness Suicide Risk Stratification Suicide Risk Factors - Adult: : Prior psych admission (last time 05/16/2016 here) No: Access to firearms, Alcohol use, Close associate suicide, Family Hx of Suicide, Previous attempt, Substance abuse RF Statements: Risk factors reviewed Past Medical History Past Medical History Paranoid Schizophrenia History of polysubstance abuse (meth) Psychiatric admit (05/13 - 05/27) Past Surgical History R hernia repair Smoking History Light Tobacco Smoker, Never Smoker Social History History of polysubstance abuse by history Alcohol Use: Denies alcohol use Drug Use: THC, Other (meth last use 2012) Other Social History: Good social support, Local resident Occupation lives with family, no work or school at this time 06/29/2016 Ambulatory Status Independent Review of Systems Basic Review of Systems Eyes: Vision NL, No discharge Hematologic: No bleeding, No bruising Allergy / Immune: No allergy Physical Exam Initial Vital Signs Vital Signs (First) Date Time Temp Pulse Resp B/P Pulse Ox O2 Delivery O2 Flow Rate FiO2 06/29/16 14:02 36.7 105 18 142/88 97 Room Air Initial VS: Reviewed, Vital signs normal Head / Eyes: Atraumatic, Normocephalic, PERRL ENT: Mucous membranes moist, Conjunctiva normal, No scleral icterus Neck: Supple, Non-tender, Full range of motion Respiratory: Breath sounds normal, Clear to auscultation, No respiratory distress Cardiovascular: Regular rate & rhythm, Heart sounds normal, Intact distal pulses Abdomen / GI: Soft, Non-tender, No guarding, No rebound, No distention Back: No CVA tenderness Lymphatic: No lymphadenopathy Extremities: Vascular intact, Neuro intact, No swelling, No tenderness Skin: Warm, Dry, No cyanosis General/Constitutional: Awake, Alert, No acute distress, Well appearing, Well developed, Well hydrated, Well nourished, Cooperative, Not toxic appearing Neurologic: Oriented X3, Speech NL, No motor deficits Psychiatric: Affect NL Abnormal Mood/Affect: Positive: Flat affect Head / Eyes: Atraumatic, Normocephalic, PERRL ENT: Atraumatic, Airway patent, Mucous membranes moist Respiratory / Chest: Atraumatic, Breath sounds NL, Breath sounds = bilat, No respiratory distress Cardiovascular: Heart rate NL, Regular rhythm, Heart sounds NL, No gallop Interpretation & Diagnostics Lab Results Interpretation Result Diagram: 06/29/16 1525 06/29/16 1525 Test 06/29/16 14:39 06/29/16 15:25 Hold Urine Received (Received) White Blood Count 9.1th/mm3 (3.8-10.1) Red Blood Count 5.40mil/mm3 (4.40-5.80) Hemoglobin 15.6g/dL (13.8-17.2) Hematocrit 45.6% (41.0-50.0) Mean Corpuscular Volume 84.4fL (81-100) Mean Corpuscular Hemoglobin 28.9pg (27.0-35.0) Mean Corpuscular Hemoglobin Concent 34.2% (32.0-37.0) Red Cell Distribution Width 12.9% (12.3-15.4) Platelet Count 208bil/L (150-400) Neutrophils (%) (Auto) 82.7% (40-74) Lymphocytes (%) (Auto) 9.9% (14-46) Monocytes (%) (Auto) 6.4% (4-12) Eosinophils (%) (Auto) 0.6% (0-5) Basophils (%) (Auto) 0.2% (0-3) Sodium Level 138mEq/L (134-144) Potassium Level 4.3mEq/L (3.5-5.2) Chloride Level 101mEq/L (97-108) Carbon Dioxide Level 21mmol/L (18-29) Blood Urea Nitrogen 15mg/dL (6-20) Creatinine 0.88mg/dL (0.76-1.27) Estimat Glomerular Filtration Rate 112mL/min (>59) Glucose Level 123mg/dL (60-99) Calcium Level 9.3mg/dL (8.5-10.1) Total Bilirubin 0.4mg/dL (0.0-1.2) Aspartate Amino Transf (AST/SGOT) 18U/L (0-50) Alanine Aminotransferase (ALT/SGPT) 39U/L (0-44) Alkaline Phosphatase 95U/L (25-150) Total Protein 7.2g/dL (6.4-8.4) Albumin 4.5g/dL (3.4-5.0) Thyroid Stimulating Hormone (TSH) 2.000uIU/mL (0.450-4.500) Hold Quintero Top Tube Received (Received) Re-Eval/Medical Decision Med Decision/Clinical Course patient presents to the ER requesting hospitalization for voices and hallilucations. Etoh and u tox are negative. Labs are normal. Patient is accepted at [facility] but not till 2 . paperwork filled out. discharge paperwork completed. Dr. Thakur to assume care. Discharge & Departure Impression: Primary Impression: Schizophrenia Schizophrenia type: other Qualified Code: F20.89 - Other schizophrenia Referrals: Steffi Pineda MD (PCP) [facility] Provider for [facility]: Wilder Thakur MD copies to: Steffi Pineda MD, Sue ARNP June 29, 2016 14:34
[2016-06-29 15:30] LABS: BASOPHILS % (AUTO) 0.2 % (0-3); EOSINOPHILS % (AUTO) 0.6 % (0-5); MONOCYTES % (AUTO) 6.4 % (4-12); Mean Corpuscular Hemoglobin 28.9 pg (27.0-35.0); Mean Corpuscular Volume 84.4 fL (81-100); NEUTROPHILS % (AUTO) 82.7 % (40-74); Platelet Count 208 bil/L (150-400)
[2016-06-29 19:45] VITALS: BP 118/77; PULSE 99; RESP 18; O2SAT 97
[2016-06-30 00:30] VITALS: BP 116/72; PULSE 89; RESP 18; O2SAT 98
== END 2016-06-30 00:34 | disposition other institution (70) ==
LOC: SED 13:55
DX: F20.89 Other schizophrenia (principal); F17.200 Nicotine dependence, unspecified, uncomplicated